=== PATIENT | female | born 1965 | race Two or more races ===

== ENCOUNTER → 2024-12-06 | Outpatient (CLI) | payer MEDICAID, SELFPAY ==
[2024-12-06 09:53] LABS: Basophils # (Auto) 0.1 Thou/mm3 (0.0-0.2); Basophils % (Auto) 1 % (0-2.5); Eosinophils # (Auto) 0.5 Thou/mm3 (0.0-0.5); Eosinophils % (Auto) 5 % (0-10); Hematocrit 41.9 % (36.0-46.0); Hemoglobin 13.6 g/dL (12.0-16.0); Immature Granulocytes % (Auto) 1 % (0-0); Immature Granulocytes Auto 0.08 Thou/mm3 (0.00-0.00); Lymphocytes # (Auto) 2.6 Thou/mm3 (1.0-4.8); Lymphocytes % (Auto) 24 % (10-50); Mean Corpuscular HGB Conc 32.5 g/dl (31.0-37.0); Mean Corpuscular Hemoglobin 27.4 pg (25.0-35.0); Mean Corpuscular Volume 84 fL (80-100); Monocytes # (Auto) 0.7 Thou/mm3 (0.0-0.8); Monocytes % (Auto) 6 % (0-12); Neutrophils # (Auto) 6.8 Thou/mm3 (1.8-7.7); Neutrophils % (Auto) 63 % (37-80); Nucleated Red Blood Cell % 0 /100 WBC (0); Platelet Count 236 Thou/mm3 (140-440); Red Blood Count 4.97 Miln/mm3 (4.00-5.20); White Blood Count 10.7 Thou/mm3 (3.6-11.0)
[2024-12-06 09:55] LABS: Partial Thromboplastin Time 27.6 Seconds (22.0-36.0); Prothrombin Time 11.2 Seconds (9.0-12.2)
[2024-12-06 10:10] LABS: Alanine Aminotransferase 49 U/L (10-49); Albumin, Serum 4.8 gm/dL (3.5-5.0); Albumin/Globulin Ratio 1.4 (1.2-2.2); Alkaline Phosphatase 215 U/L (46-116); Anion Gap 11 (7-16); Aspartate Amino Transferase 36 U/L (0-34); BUN/Creatinine Ratio 18 Ratio (12-20); Bilirubin,Total 0.3 mg/dL (0.3-1.2); Blood Urea Nitrogen 16 mg/dL (9-23); Calcium 9.8 mg/dL (8.3-10.6); Calcium (Corrected) 9.8 mg/dL (8.5-10.1); Carbon Dioxide 28.3 mMol/L (20.0-31.0); Chloride 100 mMol/L (98-107); Creatinine (Component) 0.9 mg/dL (0.6-1.3); Globulin 3.5 gm/dL (2.3-3.5); Glucose 295 mg/dL (74-106); Osmolality,Calculated 289 (275-295); Potassium 4.3 mMol/L (3.4-5.1); Sodium 139 mMol/L (136-145); Total Protein 8.3 gm/dL (5.7-8.2); eGFR > 60 See Note
[2024-12-06 10:20] LABS: Ammonia < 10 uMol/L (11-32)
--- NOTE | 2024-12-06 11:00 | XR_ITS ---
Examination: CT abdomen, without intravenous contrast. CT abdomen, with intravenous contrast. Sagittal and coronal 2-D reconstructions. Time of exam:May 08, 2025 1037 hours Comparison February 06, 2021 INDICATIONS: Diagnosis cirrhosis years ago, chronic abdominal pain CTDI: vol (mGy) 20.9 DLP: (mGycm) 688 Technique: Multiple 3.0 mm axial noncontrast images of the abdomen have been obtained. Multiple 3.0 mm axial images post administration 60 cc Isovue-370 intravenous contrast have been obtained. Sagittal and coronal 3-D reconstructions have been obtained. Low dose protocols were performed. One or more of the following dose reduction techniques were used; automated exposure control, adjustment of the mA and/or KV according to patient size, use of iterative reconstruction technique. Findings: Liver irregular in contour with diffuse fatty infiltration Absent gallbladder Spleen not enlarged No pancreatic or adrenal mass No renal or ureteral calculi, no hydronephrosis Aorta normal size No bowel obstruction Severe chronic compression fracture T12 with retropulsion of the posterior superior margin of this vertebral body 5 mm IMPRESSION: Cirrhosis, no focal liver lesions
== END | disposition home or self-care (01) ==
LOC: CCTX 08:59 → COPL 09:00
PROVIDERS: PCP Nurse Practitioner Family
DX: R16.0 Hepatomegaly, not elsewhere classified (principal)
CPT/HCPCS: 36415; 74170; 80053; 82105; 82140; 85025; 85610; 85730; A4649; Q9967

== ENCOUNTER 2025-05-28 19:59 | Emergency (ER) | payer MEDICAID, SELFPAY ==
[2025-05-28 20:00] VITALS: BMI 25.4
[2025-05-28 20:09] VITALS: BP 153/75; PULSE 111; RESP 20; TEMP 37.4; O2SAT 97
--- NOTE | 2025-05-28 20:29 | EDNOTE_ITS ---
ED Back Injury Pain RME/HPI General Chief Complaint: General Adult/Misc Complain Stated Complaint: GENERALIZED BODY PAIN Time Seen by Provider: 05/28/25 20:17 Arrival date/time: 05/28/25 19:59 This is a case of 60-year-old female with history of diabetes and generalized body pain came in in the emergency room due to low back pain and sciatica pain patient denies any other pain denies any headache chest pain neck pain or abdominal pain patient came here due to pain on the back denies any injury or trauma patient states that she has already appointment to see a pain management doctor denies any numbness weakness tingling sensation or incontinence to urine or stool Limitations: no limitations Related Data Previous Rx's ?Medication ?Instructions ?Recorded ibuprofen 800 mg tablet 800 mg PO TID PRN pain #30 t abs 02/06/21 hydrocodone 5 mg-acetaminophen 325 1 tab PO BID PRN pa in #10 tabs 04/16/21 mg tablet ibuprofen 800 mg tablet 800 mg PO TID PRN pain #30 t abs 04/16/21 cyclobenzaprine 5 mg tablet 5 mg PO BID PRN muscle spa sm #14 08/30/21 tabs ibuprofen 600 mg tablet 600 mg PO Q8H PRN fever or p ain 08/30/21 #30 tabs dextromethorphan-guaifenesin 10 10 ml PO Q8H PRN cough #500 mL 10/29/23 mg-100 mg/5 mL oral liquid ibuprofen 600 mg tablet 600 mg PO TID PRN pain #30 t abs 10/29/23 benzonatate 200 mg capsule 200 mg PO TID PRN cough #20 caps 03/28/24 ibuprofen 600 mg tablet 600 mg PO TID PRN pain #30 t abs 03/28/24 hydrocodone 5 mg-acetaminophen 325 1 tab PO Q6H PRN pa in #8 tabs 05/28/25 mg tablet Allergies Allergy/AdvReac Type Severity Reaction Status Date / Time No Known Allergies Allergy Verified 05/28/25 20:04 Review of Systems Review of Systems Systems Reviewed: All systems reviewed, normal except as documented Constitutional Constitutional: Reports system reviewed and no additional complaints, except as documented and Reports as per HPI Cardiovascular Cardiovascular: Reports system reviewed and no additional complaints, except as documented and Reports as per HPI Respiratory Respiratory: Reports system reviewed and no additional complaints, except as documented and Reports as per HPI Gastrointestinal Gastrointestinal: Reports system reviewed and no additional complaints, except as documented and Reports as per HPI Genitourinary Genitourinary: Reports system reviewed and no additional complaints, except as documented and Reports as per HPI Neurologic Neurologic: Reports system reviewed and no additional complaints, except as documented and Reports as per HPI Past Medical History Past Medical History CARDIAC: Negative Congestive Heart Failure RESPIRATORY: Negative Chronic Obstructive Pulmonary Disease (COPD) GENITOURINARY: Negative Renal Disease ENDOCRINE: Negative Diabetes Mellitus Type 1 or Diabetes Mellitus Type 2 Social History SMOKING STATUS: Never smoker ED Exam General Limitations: Present no limitations General appearance: Present alert, in no apparent distress and other (Patient is awake alert oriented not in distress nontoxic looking well-hydrated well- nourished) Head Head exam: Present atraumatic, normocephalic and normal inspection Eye Eye exam: Present normal appearance, PERRL and EOMI ENT ENT exam: Present normal exam, normal oropharynx, mucous membranes moist and other (HEENT exam is normal and unremarkable) Neck Neck exam: Present normal inspection, full ROM, trachea midline and other (ROM intact neurovascular intact); Absent tenderness, meningismus, lymphadenopathy or thyromegaly Chest Chest inspection: Present normal inspection and symmetric chest wall rise; Absen t tenderness Respiratory Respiratory exam: Present normal lung sounds bilaterally; Absent respiratory distress, wheezes, stridor, accessory muscle use or prolonged expiratory phase Cardiovascular Cardiovascular exam: Present regular rate, normal rhythm and normal heart sounds; Absent bradycardia, tachycardia, irregular rhythm, systolic murmur or diastolic murmur Abdominal Exam Abdominal exam: Present soft and normal bowel sounds; Absent distention, tenderness, guarding, rebound, rigidity, hyperactive bowel sounds, hypoactive bowel sounds or organomegaly Extremities Exam Extremities exam: Present normal inspection and full ROM Expanded Lower Extremity Exam Hip/Pelvis exam: Present normal inspection and full ROM; Absent tenderness or swelling Upper leg exam: Present normal inspection and full ROM; Absent tenderness or swelling Knee exam: Present normal inspection and full ROM; Absent tenderness or swelling Lower leg exam: Present normal inspection, full ROM and Achilles tendon intact; Absent tenderness, swelling or Homans' sign Ankle exam: Present normal inspection and full ROM; Absent tenderness or swelling Foot/toe exam: Present normal inspection and full ROM; Absent tenderness or swelling Back Exam Back exam: Present normal inspection, full ROM and tenderness (Lumbar L1 L5 ROM intact neurovascular); Absent CVA tenderness (R), CVA tenderness (L), muscle spasm, paraspinal tenderness, vertebral tenderness, rashes or sciatic notch tenderness (R) Neurological Exam Neurological exam: Present alert, oriented X3, CN II-XII intact, normal gait and reflexes normal; Absent motor sensory deficit Psychiatric Psychiatric exam: Present normal affect and normal mood Skin Skin exam: Present warm, dry, intact and normal color Course Quality Measures none Orders Category Date Time Status HYDROcodone*/APAP 5/325 [Energy 5/325] Med 05/28/25 20:25 Discontinued 1 tab PO X1 ONE Ketorolac Inj [Toradol Inj] Med 05/28/25 20:25 Discontinued 30 mg IM X1 ONE Ondansetron Odt [Zofran Odt] Med 05/28/25 20:25 Discontinued 4 mg PO X1 ONE Vital Signs Vital signs: Vital Signs Temperature 99.3 F 05/28/25 20:09 Pulse Rate 111 H 05/28/25 20:09 Respiratory Rate 20 05/28/25 20:09 Blood Pressure 153/75 H 05/28/25 20:09 Pulse Oximetry (%) 97 05/28/25 20:09 Oxygen Delivery Method Room Air 05/28/25 20:09 Oxygen saturation is 97% in room air Back Pain / Injury MDM Narrative MDM Narrative:: This is a case of 60-year-old female with history of diabetes and generalized body pain came in in the emergency room due to low back pain and sciatica pain patient denies any other pain denies any headache chest pain neck pain or abdominal pain patient came here due to pain on the back denies any injury or trauma patient states that she has already appointment to see a pain management doctor denies any numbness weakness tingling sensation or incontinence to urine or stool physical examination patient is awake alert oriented not in distress nontoxic looking vital signs stable BP stable not tachycardic not tachypneic not hypoxic and afebrile neck exam is normal no tenderness ROM intact neurovascular intact lungs sound is clear no crackles no rales no retraction no stridor heart normal rate regular rhythm no murmur abdominal exam is benign nonsurgical no guarding no rebound no rigidity noted a mild to moderate tenderness on the L1-L5 but no paraspinal no paravertebral tenderness steady gait no CVA tenderness leg raise exam is normal based on my physical examination and history patient symptoms suggestive of chronic low back pain and sciatica at the time of exam there is no indication to perform any blood test or any imaging patient only wants a pain medication until she will see his pain management doctor for any worsening symptoms or any emergent concerns she will return in the emergency room immediately or call 911 she will follow-up with PCP in 2 days for r eevaluation at the time of exam no signs and symptoms of cauda equina Patient was discharged with comfortable condition walking with stable gait. Patient verbalized no further complains explained diagnosis and answered patient question. Patient is comfortable with the proposed management plan including the need to follow up with his/her primary care physician and any specialist if applicable Discussed patient for any urgent condition or worsening sx, He/She needed to go to emergency room immediately or call 911. Patient acknowledge the responsibility to follow up as instructed and to monitor her/his symptoms. For any persistence of the symptoms for more than 3-5 days return precaution advised. Discussed the result of the test and was given printed discharge instruction Patient data External records reviewed:: [facility] previous records Clinical information provided by:: patient Social determinants that could affect healthcare access:: none Patient has the following chronic illnesses:: None How is presenting disease/condition affected by chronic disease/condition?: no chronic disease Evaluation data The following diagnostics were reviewed and interpreted by me:: other (specify) (None) Lab and/or radiology exams considered but not ordered:: None Interpretation Summary: None Medications / Prescriptions Medications or Prescriptions considered but not ordered:: Given Medication administrations:: Medication Administration History Discontinued Medications Hydrocodone Bitart/Acetaminophen (Hydrocodone/Apap 5/325 Tablet) 1 tab PO X1 ONE Stop: 05/28/25 20:26 Ketorolac Tromethamine (Ketorolac Inj 60 Mg/2 Ml Vial) 30 mg IM X1 ONE Stop: 05/28/25 20:26 Ondansetron HCl (Ondansetron Odt 4 Mg Tabrap) 4 mg PO X1 ONE; Protocol Stop: 05/28/25 20:26 Given Consultations Consultation(s) initiated? (list below): No Diagnosis Differential diagnosis back pain/injury: lumbar radiculopathy, sciatica, strain of lumbar region and thoracic back pain Most likely diagnosis given after review of the tests above:: Chronic low back pain sciatica Admission Indicated Admission indicated?: not indicated Explain why admission is indicated or not indicated:: Not indicated Admission Request Was there a request for admission?: No Admission Attestation Admission request attestation: Not indicated Disposition Plan Disposition Plan: Discharge Discharge Attestation Discharge Attestation: The patient and all family members were given an opportunity to ask questions and understood the discharge instructions. Discharge instructions specifically effects, indications for sooner follow up or return to the emergency department, and the expected course of current diagnosis. Patient condition: Stable Discharge Plan Plan Patient Disposition: HOME (Self Care) Patient condition on transfer: Stable Prescriptions/Referrals Prescriptions/Med Rec: New hydrocodone-acetaminophen 5-325 mg tablet 1 tab PO Q6H MDD max 4 tabs per day PRN (Reason: pain) Qty: 8 0RF No Action ibuprofen 800 mg tablet 800 mg PO TID PRN (Reason: pain) Qty: 30 0RF hydrocodone-acetaminophen 5-325 mg tablet 1 tab PO BID MDD 10 PRN (Reason: pain) Qty: 10 0RF ibuprofen 800 mg tablet 800 mg PO TID PRN (Reason: pain) Qty: 30 0RF cyclobenzaprine 5 mg tablet 5 mg PO BID PRN (Reason: muscle spasm) Qty: 14 0RF ibuprofen 600 mg tablet 600 mg PO Q8H PRN (Reason: fever or pain) Qty: 30 0RF dextromethorphan-guaifenesin 10-100 mg/5 mL liquid 10 ml PO Q8H PRN (Reason: cough) Qty: 500 0RF ibuprofen 600 mg tablet 600 mg PO TID PRN (Reason: pain) Qty: 30 0RF benzonatate 200 mg capsule 200 mg PO TID PRN (Reason: cough) Qty: 20 0RF ibuprofen 600 mg tablet 600 mg PO TID PRN (Reason: pain) Qty: 30 0RF Problem List Clinical Impression: Chronic low back pain, Sciatica Patient/Caregiver Discharge Instructions Education Materials: Managing Chronic Pain, ED Back Pain (Acute or Chronic), ED Chronic Pain, ED Sciatica Additional Instructions: Follow-up with your primary care physician in 2 days for reevaluation and to be referred to neurosurgeon for further evaluation and treatment of chronic low back pain for possible MRI to ruled out herniated disc and to be referred to pain management doctor for pain control worsening symptoms or any emergent concerns such as numbness weakness tingling sensation incontinence to urine or stool call 911 or go to the nearest emergency room take your medication as dire cted ice pack and warm compress as needed for pain Print Language: Namibian Stand Alone Forms: [employer] Award Info., Patient Portal Info Letter PA/PROFESSOR OF GRAPHIC DESIGN Supervising Physician PA/PROFESSOR OF GRAPHIC DESIGN Supervising Physician: Dr. Dean
[2025-05-28] MEDS: HYDROcodone/APAP 5/325 TABLET 1 TAB PO (20:32)
[2025-05-28] MEDS: KETOROLAC INJ 60 MG/2 ML VIAL 30 MG IM (20:33)
[2025-05-28] MEDS: ONDANSETRON ODT 4 MG TABRAP PO (20:33)
== END 2025-05-28 20:41 | disposition home or self-care (01) ==
PROVIDERS: Emergency Provider Emergency Medicine
DX: M54.40 Lumbago with sciatica, unspecified side (principal); G89.29 Other chronic pain
CPT/HCPCS: 96372; 99283; J1885; Q0162; A9270

== ENCOUNTER 2025-06-06 10:39 | Emergency (ER) | payer MEDICAID, SELFPAY ==
[2025-06-06 10:43] VITALS: PULSE 84; RESP 20; O2SAT 98; BMI 25.2
[2025-06-06 10:47] VITALS: BP 138/81; PULSE 77; RESP 17; TEMP 36.9; O2SAT 100
--- NOTE | 2025-06-06 11:05 | EDNOTE_ITS ---
<Statement entered by Jessica Ayala MD - 06/25/25 06:08> As co-signing physician, I was present and available for consult prn. I concur with the plan and care as documented by the midlevel provider. ED Headache RME/HPI General Chief Complaint: Headache Stated Complaint: HEADACHE Time Seen by Provider: 06/06/25 11:01 Arrival date/time: 06/06/25 10:39 RME / HPI RME / HPI Narrative: 60-year-old female patient with significant history of hypertension diabetes mellitus, came in for evaluation regarding headache. Been having headache for the last few days, this morning patient is worried because the headache is getting worse, severity moderate associated with nausea. Patient also complaining of facial numbness both side. Denies any upper or lower extremity focal neurologic deficit. Denies any head trauma or fall denies any fever. Patient is currently seen by PCP for chronic pain and fibromyalgia. Related Data Previous Rx's ?Medication ?Instructions ?Recorded ibuprofen 800 mg tablet 800 mg PO TID PRN pain #30 t abs 02/06/21 hydrocodone 5 mg-acetaminophen 325 1 tab PO BID PRN pa in #10 tabs 04/16/21 mg tablet ibuprofen 800 mg tablet 800 mg PO TID PRN pain #30 t abs 04/16/21 cyclobenzaprine 5 mg tablet 5 mg PO BID PRN muscle spa sm #14 08/30/21 tabs ibuprofen 600 mg tablet 600 mg PO Q8H PRN fever or p ain 08/30/21 #30 tabs dextromethorphan-guaifenesin 10 10 ml PO Q8H PRN cough #500 mL 10/29/23 mg-100 mg/5 mL oral liquid ibuprofen 600 mg tablet 600 mg PO TID PRN pain #30 t abs 10/29/23 benzonatate 200 mg capsule 200 mg PO TID PRN cough #20 caps 03/28/24 ibuprofen 600 mg tablet 600 mg PO TID PRN pain #30 t abs 03/28/24 hydrocodone 5 mg-acetaminophen 325 1 tab PO Q6H PRN pa in #8 tabs 05/28/25 mg tablet rizatriptan 10 mg tablet (Maxalt) 10 mg PO Q2H PRN shon campos headache 06/06/25 #30 tabs Allergies Allergy/AdvReac Type Severity Reaction Status Date / Time No Known Allergies Allergy Verified 05/28/25 20:04 Review of Systems Review of Systems Narrative Review of Systems: Review of system reviewed and within normal limits except mentioned in HPI ED Exam Narrative Physical exam: VITAL SIGNS: Reviewed. GENERAL APPEARANCE: Alert and interactive, follows commands, no acute distress, HEAD AND FACE: Non-traumatic. ENT: PERRL, pink conjunctivitis, eyelid no trauma, Mucous membrane moist. NECK: Supple, nontender, no nuchal rigidity. CHEST: No tenderness, no crepitus, no paradoxical movement, no retractions. LUNGS: Clear, well ventilated, symmetric, no rales, no wheezing, no ronchi, no stridor, good breath sounds bilaterally. HEART: Regular rate, regular rhythm, no murmur, no gallops. ABDOMEN: Soft, positive bowel sounds, nondistended, no guarding, nontender, no rebound, no masses, RECTAL: Deferred. GENITAL: Deferred. NEUROLOGICAL: Gross motor function intact sensory function intact, Appropriate for age. MUSCULOSKELETAL: low back nontender, full range of motion. EXTREMITIES: Nontender, full range of motion. SKIN: Color pink, dry, no rash, no lacerations, no abrasions, no contusions. LYMPHATICS: Deferred. Course Quality Measures none Orders Category Date Time Status CT head/brain wo con Stat Exams 06/06/25 11:14 Completed CBC [CBC] Stat Lab 06/06/25 11:23 Completed CMP [Comprehensive Metabolic Panel] Stat Lab 06/06/25 11:23 Completed Acetaminophen Ivpb [Ofirmev Inj] Med 06/06/25 11:14 Discontinued 1,000 mg in 100 ml IV X1 DiphenhydrAMINE INJ [Benadryl Inj] Med 06/06/25 11:14 Discontinued 50 mg IVP X1 ONE Metoclopramide Inj [Reglan Inj] Med 06/06/25 11:14 Discontinued 10 mg IVP X1 ONE Vital Signs Vital signs: Vital Signs Temperature 98.4 F 06/06/25 10:47 Pulse Rate 77 06/06/25 10:47 Respiratory Rate 17 06/06/25 10:47 Blood Pressure 138/81 H 06/06/25 10:47 Pulse Oximetry (%) 100 06/06/25 10:47 Headache MDM Narrative MDM Narrative:: 60-year-old female patient with significant history of hypertension diabetes mellitus, came in for evaluation regarding headache. Been having headache for the last few days, this morning patient is worried because the headache is getting worse, severity moderate associated with nausea. Patient also complaining of facial numbness both side. Denies any upper or lower extremity focal neurologic deficit. Denies any head trauma or fall denies any fever. Patient is currently seen by PCP for chronic pain and fibromyalgia. CT scan of the head came back unremarkable. Laboratory workup also came back normal. Patient was given Tylenol, Benadryl and Reglan, and IV fluids with significant cardiac symptoms. Patient stable for discharge home Patient data External records reviewed:: None Clinical information provided by:: patient Social determinants that could affect healthcare access:: none Patient has the following chronic illnesses:: Chronic pain syndrome How is presenting disease/condition affected by chronic disease/condition?: exacerbated by Evaluation data The following diagnostics were reviewed and interpreted by me:: lab results and radiology exam(s) Lab and/or radiology exams considered but not ordered:: None Interpretation Summary: See results MDM Medications / Prescriptions Medications or Prescriptions considered but not ordered:: None Medication administrations:: Medication Administration History Discontinued Medications Diphenhydramine HCl (Diphenhydramine Inj 50 Mg/Ml Vial) 50 mg IVP X1 ONE Stop: 06/06/25 11:15 Last Admin: 06/06/25 11:31 Dose: 50 mg Documented By: BY Acetaminophen (Ofirmev Inj) 1,000 mg in 100 mls @ 250 mls/hr IV X1 ONE Stop: 06/06/25 11:37 Last Infusion: 06/06/25 13:05 Dose: Infused Documented By: Admin: 06/06/25 11:32 Dose: 250 mls/hr Documented By: BY Metoclopramide HCl (Metoclopramide Inj 5 Mg/Ml Vial 2 Ml) 10 mg IVP X1 ONE; Protocol Stop: 06/06/25 11:15 Last Admin: 06/06/25 11:32 Dose: 10 mg Documented By: BY Reglan, Tylenol and Benadryl Consultations Consultation(s) initiated? (list below): No Diagnosis Differential diagnosis headache: migraine, tension headache and headache Most likely diagnosis given after review of the tests above:: Migraine headache Admission Indicated Admission indicated?: not indicated Admission Request Was there a request for admission?: No Disposition Plan Disposition Plan: Discharge Discharge Attestation Discharge Attestation: The patient was given an opportunity to ask questions and understood the discharge instructions. Discharge instructions specifically effects, indications for sooner follow up or return to the emergency department, and the expected course of current diagnosis. Patient condition: Stable Discharge Plan Plan Patient Disposition: HOME (Self Care) Discharge Disposition comment: Stable Prescriptions/Referrals Prescriptions/Med Rec: New rizatriptan [Maxalt] 10 mg tablet 10 mg PO Q2H PRN (Reason: migraine headache) Qty: 30 0RF Rx Instructions: do not exceed 3 doses per 24 hrs No Action ibuprofen 800 mg tablet 800 mg PO TID PRN (Reason: pain) Qty: 30 0RF hydrocodone-acetaminophen 5-325 mg tablet 1 tab PO BID MDD 10 PRN (Reason: pain) Qty: 10 0RF ibuprofen 800 mg tablet 800 mg PO TID PRN (Reason: pain) Qty: 30 0RF cyclobenzaprine 5 mg tablet 5 mg PO BID PRN (Reason: muscle spasm) Qty: 14 0RF ibuprofen 600 mg tablet 600 mg PO Q8H PRN (Reason: fever or pain) Qty: 30 0RF dextromethorphan-guaifenesin 10-100 mg/5 mL liquid 10 ml PO Q8H PRN (Reason: cough) Qty: 500 0RF ibuprofen 600 mg tablet 600 mg PO TID PRN (Reason: pain) Qty: 30 0RF benzonatate 200 mg capsule 200 mg PO TID PRN (Reason: cough) Qty: 20 0RF ibuprofen 600 mg tablet 600 mg PO TID PRN (Reason: pain) Qty: 30 0RF hydrocodone-acetaminophen 5-325 mg tablet 1 tab PO Q6H MDD max 4 tabs per day PRN (Reason: pain) Qty: 8 0RF Referrals: Orlin Barrett NP [Primary Care Provider] - In 1 week Problem List Clinical Impression: Headache Patient/Caregiver Discharge Instructions Discharge Activity: activity as tolerated Education Materials: Self-Care for Headaches Additional Instructions: Thank you for the opportunity for serving you today. You are stable for discharged . You are advised to: Follow-up with your PCP in 1 to 2 days Return to ED for worsening of symptoms Increase oral fluids Take medication as prescribed Print Language: Panamanian Stand Alone Forms: [employer] Award Info., Patient Portal Info Letter PA/PERSONAL CARE AID Supervising Physician CLARITZA/PERSONAL CARE AID Supervising Physician: MD Arsalan
[2025-06-06 11:13] VITALS: BP 143/87; PULSE 74; RESP 18; TEMP 37; O2SAT 98
--- NOTE | 2025-06-06 11:14 | XR_ITS ---
Examination: CT brain head without contrast. 2-D sagittal coronal reconstructions Date and time of exam:June 06, 2000 2512 noon COMPARISON: August 29, 2021 INDICATIONS: Generalized head pain today CTDI: vol (mGy):47.3 DLP: (mGycm):890 Technique: Multiple CT axial sections of the brain have been obtained, 5 mm slice thickness. Contrast has not been administered. 2-D sagittal, coronal reconstructions have been obtained Low dose protocols were performed. One or more of the following dose reduction techniques were used; automated exposure control, adjustment of the mA and/or KV according to patient size, use of iterative reconstruction technique. Findings: No significant ventricular enlargement. Intra-axial or extra-axial hemorrhage density is not seen. No mass effect or midline shift Basal cisterns are not remarkable. Fourth ventricle is midline. Cranial vault intact. Impression: Negative for acute hemorrhage, mass effect or midline shift Advise clinical correlation follow-up accordingly
[2025-06-06] MEDS: ACETAMINOPHEN IVPB 1,000 MG/100 ML VIAL 250 MG IV (11:32)
[2025-06-06] MEDS: METOCLOPRAMIDE INJ 5 MG/ML VIAL 2 ML 10 MG IVP (11:32)
[2025-06-06 11:42] LABS: Basophils # (Auto) 0.0 Thou/mm3 (0.0-0.2); Basophils % (Auto) 1 % (0-2.5); Eosinophils # (Auto) 0.5 Thou/mm3 (0.0-0.5); Eosinophils % (Auto) 6 % (0-10); Hematocrit 39.3 % (36.0-46.0); Hemoglobin 13.0 g/dL (12.0-16.0); Immature Granulocytes Auto 0.04 Thou/mm3 (0.00-0.00); Lymphocytes # (Auto) 2.4 Thou/mm3 (1.0-4.8); Lymphocytes % (Auto) 33 % (10-50); Mean Corpuscular HGB Conc 33.1 g/dl (31.0-37.0); Mean Corpuscular Hemoglobin 26.3 pg (25.0-35.0); Mean Corpuscular Volume 79 fL (80-100); Monocytes # (Auto) 0.9 Thou/mm3 (0.0-0.8); Monocytes % (Auto) 12 % (0-12); Neutrophils # (Auto) 3.6 Thou/mm3 (1.8-7.7); Neutrophils % (Auto) 48 % (37-80); Nucleated Red Blood Cell # 0.00 Thou/mm3 (0.00-0.00); Nucleated Red Blood Cell % 0 /100 WBC (0); Platelet Count 224 Thou/mm3 (140-440); RDW Standard Deviation 42.2 fL (36.4-46.3); Red Blood Count 4.95 Miln/mm3 (4.00-5.20); White Blood Count 7.5 Thou/mm3 (3.6-11.0)
[2025-06-06 11:53] LABS: Alanine Aminotransferase 52 U/L (10-49); Albumin, Serum 4.3 gm/dL (3.5-5.0); Albumin/Globulin Ratio 1.4 (1.2-2.2); Alkaline Phosphatase 145 U/L (46-116); Anion Gap 10 (7-16); Aspartate Amino Transferase 41 U/L (0-34); BUN/Creatinine Ratio 13 Ratio (12-20); Bilirubin,Total 0.3 mg/dL (0.3-1.2); Blood Urea Nitrogen 10 mg/dL (9-23); Calcium 9.5 mg/dL (8.3-10.6); Calcium (Corrected) 9.5 mg/dL (8.5-10.1); Carbon Dioxide 26.9 mMol/L (20.0-31.0); Chloride 99 mMol/L (98-107); Creatinine (Component) 0.8 mg/dL (0.6-1.3); Estimated Creatinine Clearance 58.8 mL/min (>60); Globulin 3.0 gm/dL (2.3-3.5); Glucose 124 mg/dL (74-106); Osmolality,Calculated 271 (275-295); Potassium 4.2 mMol/L (3.4-5.1); Sodium 136 mMol/L (136-145); Total Protein 7.3 gm/dL (5.7-8.2); eGFR > 60 See Note
[2025-06-06 13:07] VITALS: BP 106/65; PULSE 70; RESP 18; O2SAT 94
--- NOTE | 2025-06-06 14:00 | PC.NURSE ---
GAVE PT A TURKEY SANDWICH, APPROVED BY PROVIDER.
--- NOTE | 2025-06-06 14:09 | PC.NURSE ---
SPOKE W/SW, TO BOOK RIDE BACK HOME. SW WILL GO SPEAK W/PT TO COME UP WITH A PLAN
--- NOTE | 2025-06-06 14:20 | PC.CC ---
Addendum entered by Anastasiia Aguirre 06/06/25 14:27: Pt advised that she will have family home to receive her and they will be able to assist her upon arrival Addendum entered by Anastasiia Aguirre 06/06/25 14:23: 1422-ER security is aware that pt will need assistance getting into the [employer] car and they are aware the pt will be transporting via [employer]. Assigned RN is aware. Original Note: 1420-ASW arranged transportation via [employer] for the pt to return home. p/u ETA 7 minutes and the [employer] driver engineer will go to the ER parking lot
== END 2025-06-06 14:30 | disposition home or self-care (01) ==
PROVIDERS: Nurse Practitioner Family; Emergency Provider Emergency Medicine; PCP Nurse Practitioner Family
DX: R51.9 Headache, unspecified (principal); E11.9 Type 2 diabetes mellitus without complications; I10 Essential (primary) hypertension; M79.7 Fibromyalgia
CPT/HCPCS: 36415; 70450; 80053; 85025; 96365; 96366; 96375; 99283; J0131; J1200; J2765

== ENCOUNTER 2025-06-09 21:32 | Emergency (ER) | payer MEDICAID, SELFPAY ==
[2025-06-09 21:50] VITALS: BP 100/59; PULSE 77; RESP 18; TEMP 37; O2SAT 100
[2025-06-09 22:00] VITALS: PULSE 78; RESP 18; O2SAT 98
--- NOTE | 2025-06-09 22:06 | EKG_ITS ---
[facility] Test Date: 2025-06-09 Pat Name: SHEA FERMIN Department: Room: - Gender: Female [employer]: : [id number] Requested By: Jo Ann Cardoso Order Number: [id number] Reading MD: Jo Ann Cardoso Measurements Intervals Shields Rate: 76 P: 36 SD: 167 QRS: -17 QRSD: 84 T: 55 QT: 405 QTc: 456 Interpretive Statements SINUS RHYTHM LOW QRS VOLTAGE IN PRECORDIAL LEADS [QRS DEFLECTION < 1.0 mV IN CHEST LEADS] POSSIBLE ANTERIOR MYOCARDIAL INFARCTION , PROBABLY OLD [30 ms Q WAVE IN V3/V4, OR R < 0.2 mV IN V4] No previous ECG available for comparison /[id number]
[2025-06-09 22:09] VITALS: BMI 25.2
--- NOTE | 2025-06-09 22:11 | EDNOTE_ITS ---
ED General RME/HPI General Chief complaint: General Adult/Misc Complain Stated complaint: POLYPHARMA Time Seen by Provider: 06/09/25 21:53 Arrival date/time: 06/09/25 21:32 RME / HPI RME / HPI narrative: Ms. Jeffrey is a 60-year-old female with past medical history of hypertension, fibromyalgia, type 2 diabetes mellitus, chronic pain, migraine, fatty liver disease and hyperlipidemia who presented to [facility] emergency department on 06/09/2025 with a chief complaint of dizziness and weakness. Patient reported that she took multiple pills today for her fibromyalgia reports taking acetaminophen, tizanidine, ibuprofen, lidocaine patch for body aches. Complains of a warm facial sensation bilateral lower extremity weakness and some left upper extremity numbness. Patient is alert and oriented x 4, denies any shortness of breath chest pain headache diarrhea vomiting nausea and palpitations Related Data Previous Rx's ?Medication ?Instructions ?Recorded ibuprofen 800 mg tablet 800 mg PO TID PRN pain #30 t abs 02/06/21 hydrocodone 5 mg-acetaminophen 325 1 tab PO BID PRN pa in #10 tabs 04/16/21 mg tablet ibuprofen 800 mg tablet 800 mg PO TID PRN pain #30 t abs 04/16/21 cyclobenzaprine 5 mg tablet 5 mg PO BID PRN muscle spa sm #14 08/30/21 tabs ibuprofen 600 mg tablet 600 mg PO Q8H PRN fever or p ain 08/30/21 #30 tabs dextromethorphan-guaifenesin 10 10 ml PO Q8H PRN cough #500 mL 10/29/23 mg-100 mg/5 mL oral liquid ibuprofen 600 mg tablet 600 mg PO TID PRN pain #30 t abs 10/29/23 benzonatate 200 mg capsule 200 mg PO TID PRN cough #20 caps 03/28/24 ibuprofen 600 mg tablet 600 mg PO TID PRN pain #30 t abs 03/28/24 hydrocodone 5 mg-acetaminophen 325 1 tab PO Q6H PRN pa in #8 tabs 05/28/25 mg tablet rizatriptan 10 mg tablet (Maxalt) 10 mg PO Q2H PRN shon campos headache 06/06/25 #30 tabs Allergies Allergy/AdvReac Type Severity Reaction Status Date / Time No Known Allergies Allergy Verified 05/28/25 20:04 Review of Systems Review of Systems Systems Reviewed: All systems reviewed, normal except as documented Past Medical History Past Medical History CARDIAC: Negative Congestive Heart Failure RESPIRATORY: Negative Chronic Obstructive Pulmonary Disease (COPD) GENITOURINARY: Negative Renal Disease ENDOCRINE: Negative Diabetes Mellitus Type 1 or Diabetes Mellitus Type 2 Social History SMOKING STATUS: Never smoker ALCOHOL: Former ED Exam Narrative Physical exam: Physical Exam General: Awake and in no acute distress. Conversational and non-toxic appearing. HEENT: Normocephalic, atraumatic, mucous membranes moist. Heart: Regular rate and rhythm, no murmurs. Lungs: Clear to auscultation with no wheezing or crackles. Abdomen: Soft, nondistended, nontender, positive bowel sounds. ?No guarding or rebound tenderness. Neurologic: Alert and oriented x3, no gross neurological deficit, and patient able to move all 4 extremities. Extremities: No edema. Skin: No rash or ecchymoses. Course Quality Measures none Orders Category Date Time Status Bedside COVID-19 Antigen Test NOW Care 06/09/25 22:07 Completed Bedside Influenza A&B Antigen Test NOW Care 06/09/25 22:07 Completed Eviscerator Q4H START 00 Care 06/09/25 22:09 Completed Continuous Pulse Oximetry NOW Care 06/09/25 22:09 Completed EKG (ED ONLY) *Do not use* NOW Care 06/09/25 22:06 Completed Fingerstick [Bedside Blood Glucose] NOW Care 06/09/25 22:09 Completed Orthostatic Vitals NOW Care 06/09/25 22:08 Completed EKG (ED Only) Stat Exams 06/09/25 22:06 Draft Acetaminophen Stat Lab 06/09/25 22:29 Completed Ammonia Stat Lab 06/09/25 22:29 Completed Bilirubin,Direct Stat Lab 06/09/25 22:29 Completed CBC Stat Lab 06/09/25 22:29 Completed Comprehensive Metabolic Panel Stat Lab 06/09/25 22:29 Completed INR [Prothrombin Time with INR] Stat Lab 06/09/25 22:29 Completed Lactate (Lactic Acid) Stat Lab 06/09/25 22:29 Completed Magnesium Stat Lab 06/09/25 22:29 Completed PTT [Partial Thromboplastin Time] Stat Lab 06/09/25 22:29 Completed Phosphorous Stat Lab 06/09/25 22:29 Completed Procalcitonin Stat Lab 06/09/25 22:29 Completed Troponin I Stat Lab 06/09/25 22:29 Completed Urinalysis, C/S if Indicated Stat Lab 06/09/25 23:00 Completed Ondansetron Inj [Zofran Inj] Med 06/09/25 22:50 Discontinued 4 mg IVP X1 ONE Sodium Chloride 0.9% 1000 ml [Ns] 1,000 ml Med 06/09/25 22:50 Discontinued IV 999 mls/hr hydrOXYzine HCL [Atarax] Med 06/10/25 00:11 Discontinued 25 mg PO X1 ONE Vital Signs Vital signs: Vital Signs Temperature 98.6 F 06/09/25 21:50 Pulse Rate 77 06/09/25 21:50 Respiratory Rate 18 06/09/25 21:50 Blood Pressure 100/59 L 06/09/25 21:50 Pulse Oximetry (%) 100 06/09/25 21:50 Oxygen Delivery Method Room Air 06/09/25 21:50 Discharge Plan Plan Patient Disposition: HOME (Self Care) Patient condition on transfer: Stable Prescriptions/Referrals Prescriptions/Med Rec: No Action ibuprofen 800 mg tablet 800 mg PO TID PRN (Reason: pain) Qty: 30 0RF hydrocodone-acetaminophen 5-325 mg tablet 1 tab PO BID MDD 10 PRN (Reason: pain) Qty: 10 0RF ibuprofen 800 mg tablet 800 mg PO TID PRN (Reason: pain) Qty: 30 0RF cyclobenzaprine 5 mg tablet 5 mg PO BID PRN (Reason: muscle spasm) Qty: 14 0RF ibuprofen 600 mg tablet 600 mg PO Q8H PRN (Reason: fever or pain) Qty: 30 0RF dextromethorphan-guaifenesin 10-100 mg/5 mL liquid 10 ml PO Q8H PRN (Reason: cough) Qty: 500 0RF ibuprofen 600 mg tablet 600 mg PO TID PRN (Reason: pain) Qty: 30 0RF rizatriptan [Maxalt] 10 mg tablet 10 mg PO Q2H PRN (Reason: migraine headache) Qty: 30 0RF Rx Instructions: do not exceed 3 doses per 24 hrs benzonatate 200 mg capsule 200 mg PO TID PRN (Reason: cough) Qty: 20 0RF ibuprofen 600 mg tablet 600 mg PO TID PRN (Reason: pain) Qty: 30 0RF hydrocodone-acetaminophen 5-325 mg tablet 1 tab PO Q6H MDD max 4 tabs per day PRN (Reason: pain) Qty: 8 0RF Referrals: No Primary/Family,Physician [Primary Care Provider] - In 1 week Problem List Clinical Impression: Orthostatic hypotension, Orthostatic dizziness Patient/Caregiver Discharge Instructions Discharge Activity: activity as tolerated Education Materials: Orthostatic Hypotension Additional Instructions: - You were seen in the emergency department today for dizziness, you were found to be orthostatic positive, that can happen when you are dehydrated as you are also on Mounjaro for diabetes that can decrease your thirst as well, we gave you IV fluids, recommend drinking 2 to 3 L of water daily. We tested you for urinary tract infection, COVID and flu, they were negative. - Your labs otherwise are normal, we did a EKG which showed no signs of any heart attack. - Recommend following up with your primary care physician to adjust your fibromyalgia medication - Return to emergency department if your symptoms worsen - Follow-up with your primary care physician in 1 week, reviewed your labs and results with your primary care. Print Language: Estonian Stand Alone Forms: [employer] Info., Patient Portal Info Letter MDM Narrative MDM hospital course (for use when minimal MDM required): #Orthostatic hypotension #Dehydration #Generalized weakness 60-year-old female with past medical history as above presented with dizziness and generalized weakness Workup: Orthostatic vitals: Orthostatic lying 98/64, sitting 83/63, standing 73/55, systolic difference greater than 20, patient orthostatic positive Fingerstick blood glucose 129 CBC: WBC 12.6 hemoglobin 13.0, platelet 239 Coags INR 1.1 PTT APTT normal CMP remarkable for sodium 132 chloride 97, glucose 155, osmolality 269, AST 50, ALT 57, alk phos 132, ammonia less than 10, lactate and Pro-Alfonso within normal limits other electrolytes within normal limits. Urinalysis: Clear urine, 4+ glucose negative blood ketones nitrite bilirubin urobilinogen and leukocyte esterase. Acetaminophen levels less than 2 EKG: Sinus rhythm, heart rate [address] head done 06/06 which was negative for any acute hemorrhage Patient was given Zofran 4 mg IV push x 1 and sodium 1 L bolus Patient complains of anxiety, was given Atarax 25 x 1 Patient condition improved, stable for discharge Case discussed with Attending Physician Dr. Jaclyn Cardoso MD Internal Medicine PGY-2 Disclaimer: This note was dictated by speech recognition. Minor errors in b2b sales representative may be present due to voice recognition software. Clinical Information Provided by: patient and EMS [facility] and [facility] Meds/Rx considered, not ordered None Labs/Rad/Tests considered, not ordered None EKG Interpretation EKG #1: EKG Interpretation: EKG: Sinus rhythm, heart rate 76 Labs Lab(s) Interpretation(s): Fingerstick blood glucose 129 CBC: WBC 12.6 hemoglobin 13.0, platelet 239 Coags INR 1.1 PTT APTT normal CMP remarkable for sodium 132 chloride 97, glucose 155, osmolality 269, AST 50, ALT 57, alk phos 132, ammonia less than 10, lactate and Pro-Alfonso within normal limits other electrolytes within normal limits. Urinalysis: Clear urine, 4+ glucose negative blood ketones nitrite bilirubin urobilinogen and leukocyte esterase. Acetaminophen levels less than 2 Medication Administration(s) Medication Administration History Discontinued Medications Hydroxyzine HCl (Hydroxyzine Hcl 25 Mg Tablet) 25 mg PO X1 ONE Stop: 06/10/25 00:12 Last Admin: 06/10/25 00:29 Dose: 25 mg Documented By: CCT Sodium Chloride (Ns) 1,000 mls @ 999 mls/hr IV .Q1H1M ONE Stop: 06/09/25 23:50 Last Infusion: 06/10/25 00:11 Dose: Infused Documented By: Admin: 06/09/25 23:23 Dose: 999 mls/hr Documented By: CCT Ondansetron HCl (Ondansetron Inj 2 Mg/Ml Inj 2 Ml) 4 mg IVP X1 ONE; Protocol Stop: 06/09/25 22:51 Last Admin: 06/09/25 23:22 Dose: 4 mg Documented By: CCT
[2025-06-09 22:36] LABS: Lactate (Lactic Acid) 1.0 mMol/L (0.4-2.0)
[2025-06-09 22:40] LABS: Basophils # (Auto) 0.1 Thou/mm3 (0.0-0.2); Basophils % (Auto) 1 % (0-2.5); Eosinophils # (Auto) 0.8 Thou/mm3 (0.0-0.5); Eosinophils % (Auto) 6 % (0-10); Hematocrit 38.9 % (36.0-46.0); Hemoglobin 13.0 g/dL (12.0-16.0); Immature Granulocytes Auto 0.06 Thou/mm3 (0.00-0.00); Lymphocytes # (Auto) 3.6 Thou/mm3 (1.0-4.8); Lymphocytes % (Auto) 29 % (10-50); Mean Corpuscular HGB Conc 33.4 g/dl (31.0-37.0); Mean Corpuscular Hemoglobin 26.9 pg (25.0-35.0); Mean Corpuscular Volume 81 fL (80-100); Monocytes # (Auto) 0.9 Thou/mm3 (0.0-0.8); Monocytes % (Auto) 7 % (0-12); Neutrophils # (Auto) 7.2 Thou/mm3 (1.8-7.7); Neutrophils % (Auto) 57 % (37-80); Nucleated Red Blood Cell # 0.00 Thou/mm3 (0.00-0.00); Nucleated Red Blood Cell % 0 /100 WBC (0); Platelet Count 239 Thou/mm3 (140-440); RDW Standard Deviation 42.3 fL (36.4-46.3); Red Blood Count 4.83 Miln/mm3 (4.00-5.20); White Blood Count 12.6 Thou/mm3 (3.6-11.0)
[2025-06-09 22:50] VITALS: BP 73/55; BP 83/63; BP 98/64; PULSE 76; PULSE 81; PULSE 87
[2025-06-09 22:51] VITALS: BP 114/67; PULSE 75; RESP 17; TEMP 37; O2SAT 100
[2025-06-09 22:58] LABS: INR 1.1 (0.9-1.3); Partial Thromboplastin Time 31.9 Seconds (22.0-36.0); Prothrombin Time 11.4 Seconds (9.0-12.2)
[2025-06-09 23:15] LABS: Acetaminophen < 2.0 mcg/mL (10.0-20.0); Alanine Aminotransferase 57 U/L (10-49); Albumin, Serum 4.6 gm/dL (3.5-5.0); Albumin/Globulin Ratio 1.4 (1.2-2.2); Alkaline Phosphatase 132 U/L (46-116); Ammonia < 10 uMol/L (11-32); Anion Gap 10 (7-16); Aspartate Amino Transferase 50 U/L (0-34); BUN/Creatinine Ratio 17 Ratio (12-20); Bilirubin,Direct < 0.1 mg/dL (0.0-0.3); Bilirubin,Total 0.3 mg/dL (0.3-1.2); Blood Urea Nitrogen 17 mg/dL (9-23); Calcium 10.0 mg/dL (8.3-10.6); Calcium (Corrected) 10.0 mg/dL (8.5-10.1); Carbon Dioxide 24.6 mMol/L (20.0-31.0); Chloride 97 mMol/L (98-107); Creatinine (Component) 1.0 mg/dL (0.6-1.3); Estimated Creatinine Clearance 47.0 mL/min (>60); Globulin 3.2 gm/dL (2.3-3.5); Glucose 155 mg/dL (74-106); Magnesium 1.9 mg/dL (1.6-2.6); Osmolality,Calculated 269 (275-295); Phosphorous 4.8 mg/dL (2.4-5.1); Potassium 4.4 mMol/L (3.4-5.1); Procalcitonin 0.16 ng/ml (0.0-0.49); Sodium 132 mMol/L (136-145); Total Protein 7.8 gm/dL (5.7-8.2); Troponin I < 0.002 ng/mL (0.0-0.045); eGFR > 60 See Note
[2025-06-09 23:15] LABS: Collection Type, Urine Clean Catch
[2025-06-09] MEDS: ONDANSETRON INJ 2 MG/ML INJ 2 ML 4 MG IVP (23:22)
[2025-06-09] MEDS: SODIUM CHLORIDE 0.9% 1000 ML 1,000 ML 999 ML IV (23:23)
[2025-06-09 23:32] LABS: Bilirubin,Urine Negative (Negative); Blood,Urine Negative (Negative); Clarity,Urine Clear (Clear/Hazy); Color,Urine Lt-Yellow (Lt Yel-Yel); Culture Indicated,Urine Not Indicated; Glucose, Urine 4+ (Negative); Hyaline Casts,Urine < 1 /hpf (0-1); Ketones,Urine Negative (Negative); Leukocyte Esterase,Urine Negative (Negative); Nitrite,Urine Negative (Negative); PH,Urine 6.0 (5.0-7.0); Protein,Urine Negative (Neg - Trace); RBC,Urine 1 /hpf (0-3); Specific Gravity,Urine 1.016 (1.001-1.035); Squamous Epithelial Cell,Urine 1 /hpf (0-5); Urobilinogen,Urine Negative mg/dL (0.0-1.0); WBC,Urine 1 /hpf (0-5)
[2025-06-10 01:00] VITALS: BP 136/75; PULSE 72; RESP 19; TEMP 36.5; O2SAT 100
== END 2025-06-10 01:00 | disposition home or self-care (01) ==
PROVIDERS: Emergency Provider Emergency Medicine
DX: I95.1 Orthostatic hypotension (principal); E86.0 Dehydration; F41.9 Anxiety disorder, unspecified; I10 Essential (primary) hypertension; M79.7 Fibromyalgia; E11.9 Type 2 diabetes mellitus without complications; E78.5 Hyperlipidemia, unspecified
CPT/HCPCS: 36415; 80053; 80329; 81001; 82140; 82248; 83605; 83735; 84100; 84145; 84484; 85025; 85610; 85730; 87400; 87811; 93005; 96361; 96374; 99284; J2405; J7030; A9270; G0480

== ENCOUNTER 2025-06-12 11:48 | Emergency (ER) | payer MEDICAID, SELFPAY ==
[2025-06-12] VITALS (7 sets, daily range): BP systolic 131–172; BP diastolic 53–92; PULSE 65–92; RESP 16–19; TEMP 36.6–36.9; O2SAT 96–100; BMI 24.6
--- NOTE | 2025-06-12 12:04 | EDNOTE_ITS ---
ED General RME/HPI General Chief complaint: General Adult/Misc Complain Stated complaint: HYPOGLYCEMIA Time Seen by Provider: 06/12/25 12:02 Arrival date/time: 06/12/25 11:48 CC: Hypoglycemia HPI patient was at the component assembler office, when the patient's dextrose alarm came off stating that the blood sugar was at 59. Patient called 911. Patient had alarm earlier this morning it in the mid 50s, called 911 but then called him off secondary to taking sugar and having her blood sugar come back up again. Patient admits she ate less food than she normally does yesterday, but takes multiple medications each morning including long-acting insulin. Patient is awake alert oriented EMS reports stable vital signs and route. The patient states she is feeling better , EMS reported blood sugar in the 1 teens upon assessment. Related Data Previous Rx's ?Medication ?Instructions ?Recorded ibuprofen 800 mg tablet 800 mg PO TID PRN pain #30 t abs 02/06/21 hydrocodone 5 mg-acetaminophen 325 1 tab PO BID PRN pa in #10 tabs 04/16/21 mg tablet ibuprofen 800 mg tablet 800 mg PO TID PRN pain #30 t abs 04/16/21 cyclobenzaprine 5 mg tablet 5 mg PO BID PRN muscle spa sm #14 08/30/21 tabs ibuprofen 600 mg tablet 600 mg PO Q8H PRN fever or p ain 08/30/21 #30 tabs dextromethorphan-guaifenesin 10 10 ml PO Q8H PRN cough #500 mL 10/29/23 mg-100 mg/5 mL oral liquid ibuprofen 600 mg tablet 600 mg PO TID PRN pain #30 t abs 10/29/23 benzonatate 200 mg capsule 200 mg PO TID PRN cough #20 caps 03/28/24 ibuprofen 600 mg tablet 600 mg PO TID PRN pain #30 t abs 03/28/24 hydrocodone 5 mg-acetaminophen 325 1 tab PO Q6H PRN pa in #8 tabs 05/28/25 mg tablet rizatriptan 10 mg tablet (Maxalt) 10 mg PO Q2H PRN shon campos headache 06/06/25 #30 tabs potassium chloride 10 mEq oral 10 meq PO QDAY #4 ea packet Allergies Allergy/AdvReac Type Severity Reaction Status Date / Time acetaminophen Allergy Unknown Verified 06/12/25 13:17 gabapentin AdvReac Mild Drowsy Verified 06/12/25 12:08 ibuprofen AdvReac Mild Abdominal Verified 06/12/25 12:08 Pain semaglutide (From Ozempic) AdvReac Mild Abdominal Verified 06/12/25 12:08 Pain Review of Systems Review of Systems Narrative Review of Systems: GEN: No fever, no chills, no weight loss EYES: No discharge, no visual changes, no pain HEENT: No ear pain, no congestion, no sore throat PULM: No shortness of breath, no cough, no congestion CV: No chest pain, no dyspnea on exertion, no palpitations GI: No nausea, no vomiting, no diarrhea, no pain, no constipation : No frequency, no urgency, no dysuria MUSC/SKEL: No joint pain, no back pain SKIN: No rash PSYCH: No hallucinations, no depression HEME/LYMPH: No easy bleeding or bruising tendencies NEURO: No weakness, no headache Past Medical History Past Medical History NEUROLOGIC: Negative Neurological Disorders CARDIAC: Positive Hypertension; Negative Cardiac Disorders, Myocardial Infarction, Cardiac Arrhythmia, Atrial Fibrillation, Angina, Atherosclerotic Heart Disease, Peripheral Vascular Disease, Aneurysm, Congestive Heart Failure, Congenital Heart Disease, Cardiomyopathy, Pericarditis or Hypotension RESPIRATORY: Negative Chronic Obstructive Pulmonary Disease (COPD) GASTROINTESTINAL: Negative Gastrointestinal Disorders or Hepatitis GENITOURINARY: Negative Genitourinary Disorders or Renal Disease REPRODUCTIVE: Negative Pelvic Inflammatory Disease MUSCULOSKELETAL: Positive Fibromyalgia; Negative Musculoskeletal Disorders ENDOCRINE: Negative Diabetes Mellitus Type 1 or Diabetes Mellitus Type 2 HEMATOLOGIC: Negative Blood Disorders OTHER HISTORY: Negative Autoimmune Disease, Anesthesia Reactions, Organ Transplant, MRSA, Vancomycin-Resistant Enterococci, Clostridium Difficile or Cancer Surgical History SURGICAL: Negative Cardiac Surgery, Ear Surgery, Nephrectomy, Neurologic Surgery, Lumpectomy or Organ Transplant Social History SMOKING STATUS: Never smoker ED Exam Narrative Physical exam: [General: Not in any acute distress Head normocephalic HEENT: Within acceptable limits Neck is supple nontender Chest equal chest rise nontender to palpation Respiratory: Clear to auscultation no wheezes crackles or rubs CV: Rate rhythm is regular no murmurs rubs or clicks Abdomen is soft nontender no masses positive bowel sounds all 4 quadrants Back: No CVA tenderness no spinous process tenderness from cervical spine thoracic and lumbar spine Skin: Intact no petechiae rash induration ulceration or crepitus Extremities: Moving all extremity against resistance cap refill less than 2 seconds neurosensory intact. No lower extremity edema. Neuro: Awake alert oriented x3 Glascow coma 15 no focal deficits]. Course Course Course Narrative: Over the last several hours, blood glucose levels have remained greater than 120 at this time comfortable discharging the patient home once he is received supplemental potassium. Patient has a mild headache refused Tylenol and ibuprofen secondary to her liver , patient was given sumatriptan. At this time I am comfortable discharging the patient home with normalized glucose levels. Patient is advised to increase her food intake or her just her morning medicines. At 1626, the patient was dry retching repeat blood glucose at 107 this is after half amp of D50. I consider this to continue dropping of her blood glucose levels even after high dose glucose. Will scan the head because of the persistent dry retching to make sure there is no neurologic cause for the nausea vomiting. Reason evaluation of this patient at 1819, the patient is much more awake alert oriented stating she does not want to stay has declined admission wants to go home. Patient's head CT is negative blood glucoses have stabilized at this time I am comfortable discharging this patient home. Patient states she will call her diabetes doctor tomorrow for advice on what to do with her medications and her eating patterns. Quality Measures none Orders Category Date Time Status Glucose [Bedside Blood Glucose] NOW Care 06/12/25 12:03 Completed Saline [Insert IV] NOW Care 06/12/25 12:[address] head/brain wo con Stat Exams 06/12/25 16:10 Completed ABG [Arterial Blood Gas] Stat Lab 06/12/25 15:51 Completed CBC Stat Lab 06/12/25 12:30 Completed CMP [Comprehensive Metabolic Panel] Stat Lab 06/12/25 12:30 Completed Comprehensive Metabolic Panel Stat Lab 06/12/25 15:55 Completed Drug Screen,Urine Stat Lab 06/12/25 16:02 Completed LDH (Lactate Dehydrogenase) Stat Lab 06/12/25 15:55 Completed Magnesium Stat Lab 06/12/25 15:55 Completed Partial Thromboplastin Time Stat Lab 06/12/25 15:55 Completed Prothrombin Time with INR Stat Lab 06/12/25 15:55 Completed Urinalysis, C/S if Indicated Stat Lab 06/12/25 16:02 Completed Acetaminophen Tab [Tylenol Tab] Med 06/12/25 13:01 Discontinued 650 mg PO X1 ONE Dextrose 50% Syr [D50w Syringe Abboject] Med 06/12/25 14:02 Discontinued 25 ml IVP X1 ONE Ketorolac Inj [Toradol Inj] Med 06/12/25 15:36 Discontinued 15 mg IVP X1 ONE Ondansetron Inj [Zofran Inj] Med 06/12/25 14:30 Discontinued 4 mg IVP X1 ONE Ondansetron Inj [Zofran Inj] Med 06/12/25 15:36 Discontinued 4 mg IVP X1 ONE POTASSIUM CHL 10 mEq IVPB [Kcl Ivpb] Med 06/12/25 15:37 Discontinued 10 meq in 100 ml IV Q1H POTASSIUM CHL 10% Liq 15 ML Med 06/12/25 13:48 Discontinued 40 meq GT X1 ONE Prochlorperazine Inj [Compazine Inj] Med 06/12/25 16:07 Discontinued 10 mg IV X1 ONE Rizatriptan Med 06/12/25 13:22 Discontinued 10 mg PO X1 ONE SUMAtriptan [Imitrex] Med 06/12/25 13:46 Discontinued 25 mg PO X1 ONE Sodium Chloride 0.9% 1000 ml [Ns] 1,000 ml Med 06/12/25 15:35 Discontinued IV 999 mls/hr Vital Signs Vital signs: Vital Signs Temperature 98.2 F 06/12/25 12:03 Pulse Rate 69 06/12/25 12:03 Respiratory Rate 17 06/12/25 12:03 Blood Pressure 172/85 H 06/12/25 12:03 Pulse Oximetry (%) 100 06/12/25 12:03 Oxygen Delivery Method Room Air 06/12/25 12:03 Discharge Plan Plan Patient Disposition: HOME (Self Care) Patient condition on transfer: Stable Prescriptions/Referrals Prescriptions/Med Rec: New potassium chloride 10 mEq packet 10 meq PO QDAY Qty: 4 0RF No Action ibuprofen 800 mg tablet 800 mg PO TID PRN (Reason: pain) Qty: 30 0RF hydrocodone-acetaminophen 5-325 mg tablet 1 tab PO BID MDD 10 PRN (Reason: pain) Qty: 10 0RF ibuprofen 800 mg tablet 800 mg PO TID PRN (Reason: pain) Qty: 30 0RF cyclobenzaprine 5 mg tablet 5 mg PO BID PRN (Reason: muscle spasm) Qty: 14 0RF ibuprofen 600 mg tablet 600 mg PO Q8H PRN (Reason: fever or pain) Qty: 30 0RF dextromethorphan-guaifenesin 10-100 mg/5 mL liquid 10 ml PO Q8H PRN (Reason: cough) Qty: 500 0RF ibuprofen 600 mg tablet 600 mg PO TID PRN (Reason: pain) Qty: 30 0RF rizatriptan [Maxalt] 10 mg tablet 10 mg PO Q2H PRN (Reason: migraine headache) Qty: 30 0RF Rx Instructions: do not exceed 3 doses per 24 hrs benzonatate 200 mg capsule 200 mg PO TID PRN (Reason: cough) Qty: 20 0RF ibuprofen 600 mg tablet 600 mg PO TID PRN (Reason: pain) Qty: 30 0RF hydrocodone-acetaminophen 5-325 mg tablet 1 tab PO Q6H MDD max 4 tabs per day PRN (Reason: pain) Qty: 8 0RF Outpatient Orders: Potassium (Routine) Location: None Selected Ordered By: Deshawn Pal Problem List Clinical Impression: Hypoglycemia, Hypokalemia, Nausea & vomiting Patient/Caregiver Discharge Instructions Education Materials: Hypoglycemia (Low Blood Sugar), ED Hypokalemia Additional Instructions: Please contact your diabetic doctor for further evaluation on how much medication to give yourself your diabetes as it seems your eating patterns have changed resulting in low blood sugars today. If there are any worsening symptoms or further complications return to the emergency room for reevaluation. Print Language: German Stand Alone Forms: [employer] Info., Work/School Release PA/SALES REPRESENTATIVE WIRE ROPE Supervising Physician PA/SALES REPRESENTATIVE WIRE ROPE Supervising Physician: Deshawn Pal [facility] Clinical Information Provided by: patient and EMS Medical Records reviewed [facility] and EMS Meds/Rx considered, not ordered None Labs/Rad/Tests considered, not ordered None Chronic Illness/Social Conditions Explain: Diabetes EKG EKG not done Labs Lab(s) Interpretation(s): CBC shows no acute leukocytosis anemia thrombocytopenia CMP shows a sodium 127 potassium 3.0 chloride 92 no gap CO2 is 22.7. Blood glucose 99 however at 1350 Accu-Chek shows a blood sugar of 131. ABG shows a pH of 7.44 pCO2 of 33 pO2 of 94 bicarb of 23. Base deficit of 1. Imaging Imaging interpretation: none Medication Administration(s) Medication Administration History Discontinued Medications Acetaminophen (Acetaminophen 325 Mg Tablet) 650 mg PO X1 ONE Stop: 06/12/25 13:02 Last Admin: 06/12/25 13:54 Dose: Not Given Documented By: VL Non-Admin Reason: Discontinued Dextrose (Dextrose 50%-Water Inj 50 Ml Syringe) 25 ml IVP X1 ONE Stop: 06/12/25 14:03 Last Admin: 06/12/25 14:08 Dose: 25 ml Documented By: SOY Sodium Chloride (Ns) 1,000 mls @ 999 mls/hr IV .Q1H1M ONE Stop: 06/12/25 16:35 Last Infusion: 06/12/25 17:28 Dose: Infused Documented By: Admin: 06/12/25 15:49 Dose: 999 mls/hr Documented By: SOY Potassium Chloride (Kcl Ivpb) 10 meq in 100 mls @ 100 mls/hr IV Q1H FRANCES Stop: 06/12/25 19:36 Last Admin: 06/12/25 17:57 Dose: Not Given Documented By: VL Non-Admin Reason: Cancelled by Provider Admin: 06/12/25 17:57 Dose: Not Given Documented By: VL Non-Admin Reason: Cancelled by Provider Admin: 06/12/25 17:29 Dose: Not Given Documented By: ALHAJI Non-Admin Reason: Cancelled by Provider Comments: PER BINTA PAL, THIS MED WILL BE DC Infusion: 06/12/25 17:27 Dose: Infused Documented By: Admin: 06/12/25 15:49 Dose: 100 mls/hr Documented By: SOY Ketorolac Tromethamine (Ketorolac Inj 30 Mg/Ml Vial) 15 mg IVP X1 ONE Stop: 06/12/25 15:37 Last Admin: 06/12/25 15:48 Dose: 15 mg Documented By: SOY Non-Formulary Medication (Rizatriptan) 10 mg PO X1 ONE Stop: 06/12/25 13:23 Last Admin: 06/12/25 13:54 Dose: Not Given Documented By: VL Non-Admin Reason: Medication Not Available Ondansetron HCl (Ondansetron Inj 2 Mg/Ml Inj 2 Ml) 4 mg IVP X1 ONE; Protocol Stop: 06/12/25 14:31 Last Admin: 06/12/25 14:37 Dose: 4 mg Documented By: SOY Ondansetron HCl (Ondansetron Inj 2 Mg/Ml Inj 2 Ml) 4 mg IVP X1 ONE; Protocol Stop: 06/12/25 15:37 Last Admin: 06/12/25 15:49 Dose: 4 mg Documented By: VL Potassium Chloride (Potassium Chloride 10% 20 Meq/15 Ml Udc) 40 meq GT X1 ONE Stop: 06/12/25 13:49 Last Admin: 06/12/25 13:59 Dose: 40 meq Documented By: VL Prochlorperazine Edisylate (Prochlorperazine Inj 5 Mg/Ml Vial 2 Ml) 10 mg IV X1 ONE; Protocol Stop: 06/12/25 16:08 Last Admin: 06/12/25 16:19 Dose: 10 mg Documented By: ALHAJI Sumatriptan Succinate (Sumatriptan 25 Mg Tablet) 25 mg PO X1 ONE Stop: 06/12/25 13:47 Last Admin: 06/12/25 14:11 Dose: 25 mg Documented By: VL
[2025-06-12 13:05] LABS: Basophils # (Auto) 0.1 Thou/mm3 (0.0-0.2); Basophils % (Auto) 1 % (0-2.5); Eosinophils # (Auto) 0.4 Thou/mm3 (0.0-0.5); Eosinophils % (Auto) 4 % (0-10); Hematocrit 39.5 % (36.0-46.0); Hemoglobin 13.5 g/dL (12.0-16.0); Immature Granulocytes Auto 0.07 Thou/mm3 (0.00-0.00); Lymphocytes # (Auto) 4.1 Thou/mm3 (1.0-4.8); Lymphocytes % (Auto) 37 % (10-50); Mean Corpuscular HGB Conc 34.2 g/dl (31.0-37.0); Mean Corpuscular Hemoglobin 26.6 pg (25.0-35.0); Mean Corpuscular Volume 78 fL (80-100); Monocytes # (Auto) 0.7 Thou/mm3 (0.0-0.8); Monocytes % (Auto) 6 % (0-12); Neutrophils # (Auto) 5.6 Thou/mm3 (1.8-7.7); Neutrophils % (Auto) 51 % (37-80); Nucleated Red Blood Cell # 0.00 Thou/mm3 (0.00-0.00); Nucleated Red Blood Cell % 0 /100 WBC (0); Platelet Count 273 Thou/mm3 (140-440); RDW Standard Deviation 39.7 fL (36.4-46.3); Red Blood Count 5.07 Miln/mm3 (4.00-5.20); White Blood Count 11.0 Thou/mm3 (3.6-11.0)
[2025-06-12 13:23] LABS: Alanine Aminotransferase 44 U/L (10-49); Albumin, Serum 4.7 gm/dL (3.5-5.0); Albumin/Globulin Ratio 1.5 (1.2-2.2); Alkaline Phosphatase 130 U/L (46-116); Anion Gap 12 (7-16); Aspartate Amino Transferase 43 U/L (0-34); BUN/Creatinine Ratio 10 Ratio (12-20); Bilirubin,Total 0.6 mg/dL (0.3-1.2); Blood Urea Nitrogen 7 mg/dL (9-23); Calcium 9.7 mg/dL (8.3-10.6); Calcium (Corrected) 9.7 mg/dL (8.5-10.1); Carbon Dioxide 22.7 mMol/L (20.0-31.0); Chloride 92 mMol/L (98-107); Creatinine (Component) 0.7 mg/dL (0.6-1.3); Estimated Creatinine Clearance 66.5 mL/min (>60); Globulin 3.2 gm/dL (2.3-3.5); Glucose 99 mg/dL (74-106); Osmolality,Calculated 253 (275-295); Potassium 3.0 mMol/L (3.4-5.1); Sodium 127 mMol/L (136-145); Total Protein 7.9 gm/dL (5.7-8.2); eGFR > 60 See Note
--- NOTE | 2025-06-12 13:49 | PC.NURSE ---
PATIENT IN TO ED FOR LOW BLOOD SUGAR. PATIENT'S FREE STYLE DAJA SHOWED BLOOD SUGAR OF 57 THIS MORNING WHEN SHE WOKE UP. PATIENT'S SUGAR KEPT FLUCTUATING UP AND DOWN. PATIENT STARTED MOUNJARO INJEFCTION ABOUT 1 MONTH AND A HALF AGO. PATIENT STATES BLOOD SUGAR DOES NOT USUALLY DROP THAT LOW. PATIENT WAS SITTING IN GURNEY, VITALS STABLE STATING SHE STARTED TO HAVE A HEADACHE. PATIENT STATED SHE WAS HAVING NUMBNESS TO HER FACE AND SOME WEAKNESS. BLOOD SUGAR RECHECKED AT BEDSIDE. STEEL PICKLER AUDREY NOTIFIED. FINGER STICK BLOOD SUGAR 131. VITAL SIGNS STABLE.
[2025-06-12] MEDS: POTASSIUM CHLORIDE 10% 20 MEQ/15 ML UDC 40 MEQ GT (13:59)
--- NOTE | 2025-06-12 14:03 | PC.NURSE ---
BINTA MCNAMARA MADE AWARE PATIENT'S FREE STYLE DAJA STARTED READING 66 LOW. CHECKED PATIENT'S SUGAR AGAIN AND FINGER STICK BLOOD GLUCOSE WAS 95.PER TANKROOM TENDER VENTURA WE WILL GIVE HALF AMP OF 50 IV PUSH.
[2025-06-12] MEDS: DEXTROSE 50%-WATER INJ 50 ML SYRINGE 25 ML IVP (14:08)
[2025-06-12] MEDS: ONDANSETRON INJ 2 MG/ML INJ 2 ML 4 MG IVP ×2 (14:37→15:49)
[2025-06-12] MEDS: KETOROLAC INJ 30 MG/ML VIAL 15 MG IVP (15:48)
[2025-06-12] MEDS: SODIUM CHLORIDE 0.9% 1000 ML 1,000 ML 999 ML IV (15:49)
[2025-06-12] MEDS: POTASSIUM CHL 10 mEq IVPB 10 MEQ/100 ML BAG 100 MEQ IV (15:49)
[2025-06-12 15:58] LABS: Allen Test Performed/OK; Base Excess -1 (-3-3); HCO3 23 mEq/L (20-26); Inspired Oxygen, FIO2 21 %; O2 Saturation 97 % (91-98); PCO2 33 mmHg (32.0-48.0); PO2 94 mmHg (83-108); Puncture Site Right Radial; pH, Arterial 7.44 (7.35-7.45)
--- NOTE | 2025-06-12 16:10 | XR_ITS ---
Examination: CT brain head without contrast. 2-D sagittal coronal reconstructions Date and time of exam:May 29, 2025 1716 hrs., Comparison June 06, 2025 Indications: Headache nausea vomiting today CTDI: vol (mGy):46 DLP: (mGycm):800 Technique: Multiple CT axial sections of the brain have been obtained, 5 mm slice thickness. Contrast has not been administered. 2-D sagittal, coronal reconstructions have been obtained Low dose protocols were performed. One or more of the following dose reduction techniques were used; automated exposure control, adjustment of the mA and/or KV according to patient size, use of iterative reconstruction technique. Findings: No significant ventricular enlargement. Intra-axial or extra-axial hemorrhage density is not seen. No mass effect or midline shift Basal cisterns are not remarkable. Fourth ventricle is midline. Cranial vault intact. Impression: Negative for acute hemorrhage, mass effect or midline shift Advise clinical correlation follow-up accordingly
[2025-06-12 16:12] LABS: Collection Type, Urine Clean Catch; RBC,Urine 0 /hpf (0-3)
[2025-06-12] MEDS: PROCHLORPERAZINE INJ 5 MG/ML VIAL 2 ML 10 MG IV (16:19)
[2025-06-12 16:30] LABS: Bilirubin,Urine Negative (Negative); Blood,Urine 2+ (Negative); Clarity,Urine Clear (Clear/Hazy); Color,Urine Colorless (Lt Yel-Yel); Culture Indicated,Urine Not Indicated; Glucose, Urine 3+ (Negative); Ketones,Urine Negative (Negative); Leukocyte Esterase,Urine Negative (Negative); Nitrite,Urine Negative (Negative); PH,Urine 6.5 (5.0-7.0); Protein,Urine Negative (Neg - Trace); Specific Gravity,Urine 1.002 (1.001-1.035); Squamous Epithelial Cell,Urine < 1 /hpf (0-5); Urobilinogen,Urine Negative mg/dL (0.0-1.0); WBC,Urine < 1 /hpf (0-5)
[2025-06-12 16:37] LABS: Amphetamine/Methamp Scrn,U Negative (Negative); Barbiturate Screen,Urine Negative (Negative); Benzodiazepines Screen,Urine Negative (Negative); Benzoylecgonine Screen, Ur Negative (Negative); Fentanyl Screen,Urine Negative (Negative); Opiate Screen,Urine Negative (Negative); THC Screen,Urine Negative (Negative)
[2025-06-12 16:40] LABS: INR 1.1 (0.9-1.3); Partial Thromboplastin Time 32.7 Seconds (22.0-36.0); Prothrombin Time 11.7 Seconds (9.0-12.2)
[2025-06-12 16:51] LABS: Alanine Aminotransferase 39 U/L (10-49); Albumin, Serum 4.4 gm/dL (3.5-5.0); Albumin/Globulin Ratio 1.5 (1.2-2.2); Alkaline Phosphatase 123 U/L (46-116); Anion Gap 11 (7-16); Aspartate Amino Transferase 38 U/L (0-34); BUN/Creatinine Ratio 7 Ratio (12-20); Bilirubin,Total 0.6 mg/dL (0.3-1.2); Blood Urea Nitrogen 5 mg/dL (9-23); Calcium 9.7 mg/dL (8.3-10.6); Calcium (Corrected) 9.7 mg/dL (8.5-10.1); Carbon Dioxide 23.5 mMol/L (20.0-31.0); Chloride 96 mMol/L (98-107); Creatinine (Component) 0.7 mg/dL (0.6-1.3); Estimated Creatinine Clearance 66.5 mL/min (>60); Globulin 2.9 gm/dL (2.3-3.5); Glucose 119 mg/dL (74-106); LDH (Lactate Dehydrogenase) 201 U/L (120-246); Magnesium 1.6 mg/dL (1.6-2.6); Osmolality,Calculated 259 (275-295); Potassium 5.1 mMol/L (3.4-5.1); Sodium 130 mMol/L (136-145); Total Protein 7.3 gm/dL (5.7-8.2); eGFR > 60 See Note
== END 2025-06-12 18:31 | disposition home or self-care (01) ==
PROVIDERS: Registered Nurse General Practice; Emergency Provider Emergency Medicine
DX: E11.649 Type 2 diabetes mellitus with hypoglycemia without coma (principal); E87.6 Hypokalemia; R51.9 Headache, unspecified
CPT/HCPCS: 36415; 36600; 70450; 80053; 80307; 81001; 82803; 83615; 83735; 85025; 85610; 85730; 96365; 96366; 96375; 96376; 99283; J0780; J1885; J2405; J3480; J7030; A9270

== ENCOUNTER 2025-06-15 16:39 | Emergency (ER) | payer MEDICAID, SELFPAY ==
[2025-06-15 17:03] VITALS: PULSE 98; RESP 17; O2SAT 99
[2025-06-15 17:25] VITALS: BP 141/71; PULSE 111; RESP 19; TEMP 37.2; O2SAT 98; BMI 31.9
--- NOTE | 2025-06-15 17:29 | PD.EDRME ---
Rapid Medical Screening Exam RME Arrival date/time: 06/15/25 16:39 60-year-old female with no known medical history presents to the emergency room with a chief complaint of a headache, and generalized bodyaches throughout her body x 1 day I have greeted and performed a focused initial assessment of this patient. A comprehensive ED assessment and evaluation of the patient, analysis of all test results, and completion of the medical decision making process will be conducted by additional ED providers. Chief Complaint: General Adult/Misc Complain Vital signs: Vital Signs Temperature 99.0 F 06/15/25 17:25 Pulse Rate 111 H 06/15/25 17:25 Respiratory Rate 19 06/15/25 17:25 Blood Pressure 141/71 H 06/15/25 17:25 Pulse Oximetry (%) 98 06/15/25 17:25 Oxygen Delivery Method Room Air 06/15/25 17:25 Vital signs reviewed by provider: Yes
[2025-06-15] MEDS: KETOROLAC INJ 60 MG/2 ML VIAL 30 MG IM (17:54)
[2025-06-15] MEDS: METOCLOPRAMIDE 5 MG TABLET 10 MG PO (17:54)
[2025-06-15 18:10] LABS: Basophils # (Auto) 0.1 Thou/mm3 (0.0-0.2); Basophils % (Auto) 1 % (0-2.5); Eosinophils # (Auto) 0.8 Thou/mm3 (0.0-0.5); Eosinophils % (Auto) 6 % (0-10); Hematocrit 39.0 % (36.0-46.0); Hemoglobin 13.2 g/dL (12.0-16.0); Immature Granulocytes Auto 0.05 Thou/mm3 (0.00-0.00); Lymphocytes # (Auto) 3.1 Thou/mm3 (1.0-4.8); Lymphocytes % (Auto) 24 % (10-50); Mean Corpuscular HGB Conc 33.8 g/dl (31.0-37.0); Mean Corpuscular Hemoglobin 27.0 pg (25.0-35.0); Mean Corpuscular Volume 80 fL (80-100); Monocytes # (Auto) 1.0 Thou/mm3 (0.0-0.8); Monocytes % (Auto) 8 % (0-12); Neutrophils # (Auto) 8.1 Thou/mm3 (1.8-7.7); Neutrophils % (Auto) 62 % (37-80); Nucleated Red Blood Cell # 0.00 Thou/mm3 (0.00-0.00); Nucleated Red Blood Cell % 0 /100 WBC (0); Platelet Count 254 Thou/mm3 (140-440); RDW Standard Deviation 41.8 fL (36.4-46.3); Red Blood Count 4.88 Miln/mm3 (4.00-5.20); White Blood Count 13.1 Thou/mm3 (3.6-11.0)
[2025-06-15 18:22] LABS: Collection Type, Urine Clean Catch
[2025-06-15 18:28] LABS: Alanine Aminotransferase 45 U/L (10-49); Albumin, Serum 4.7 gm/dL (3.5-5.0); Albumin/Globulin Ratio 1.6 (1.2-2.2); Alkaline Phosphatase 125 U/L (46-116); Anion Gap 10 (7-16); Aspartate Amino Transferase 40 U/L (0-34); BUN/Creatinine Ratio 9 Ratio (12-20); Bilirubin,Total 0.3 mg/dL (0.3-1.2); Blood Urea Nitrogen 9 mg/dL (9-23); Calcium 10.2 mg/dL (8.3-10.6); Calcium (Corrected) 10.2 mg/dL (8.5-10.1); Carbon Dioxide 26.7 mMol/L (20.0-31.0); Chloride 96 mMol/L (98-107); Creatinine (Component) 1.0 mg/dL (0.6-1.3); Estimated Creatinine Clearance 52.9 mL/min (>60); Globulin 3.0 gm/dL (2.3-3.5); Glucose 124 mg/dL (74-106); Osmolality,Calculated 266 (275-295); Potassium 4.1 mMol/L (3.4-5.1); Sodium 133 mMol/L (136-145); Total Protein 7.7 gm/dL (5.7-8.2); eGFR > 60 See Note
[2025-06-15 18:28] LABS: Bilirubin,Urine Negative (Negative); Blood,Urine Negative (Negative); Clarity,Urine Clear (Clear/Hazy); Color,Urine Colorless (Lt Yel-Yel); Culture Indicated,Urine Not Indicated; Glucose, Urine 4+ (Negative); Ketones,Urine Negative (Negative); Leukocyte Esterase,Urine Negative (Negative); Nitrite,Urine Negative (Negative); PH,Urine 6.5 (5.0-7.0); Protein,Urine Negative (Neg - Trace); RBC,Urine < 1 /hpf (0-3); Specific Gravity,Urine 1.003 (1.001-1.035); Squamous Epithelial Cell,Urine 1 /hpf (0-5); Urobilinogen,Urine Negative mg/dL (0.0-1.0); WBC,Urine < 1 /hpf (0-5)
[2025-06-15 18:34] LABS: Amphetamine/Methamp Scrn,U Negative (Negative); Barbiturate Screen,Urine Negative (Negative); Benzodiazepines Screen,Urine Negative (Negative); Benzoylecgonine Screen, Ur Negative (Negative); Fentanyl Screen,Urine Negative (Negative); Opiate Screen,Urine Positive (Negative); THC Screen,Urine Negative (Negative)
--- NOTE | 2025-06-15 19:34 | EDNOTE_ITS ---
ED General RME/HPI General Chief complaint: General Adult/Misc Complain Stated complaint: BODY PAIN Arrival date/time: 06/15/25 16:39 RME / HPI RME / HPI narrative: 06/15/25 16:39 60-year-old female with no known medical history presents to the emergency room with a chief complaint of a headache, and generalized bodyaches throughout her body x 1 day I have greeted and performed a focused initial assessment of this patient. A comprehensive ED assessment and evaluation of the patient, analysis of all test results, and completion of the medical decision making process will be conducted by additional ED providers. --------- Dr. Eagle?s Main ED Evaluation: 60yo female with a history of chronic pain/fibromyalgia on muscle relaxer reports worsening lower back pain with radiation to her bilateral buttocks. No weakness of BLE. Denies sacral paresthesia or urinary/bowel dysfunction. No recent trauma. No fever, URI, or cough. PMH includes fibromyalgia/chronic pain syndrome, DM. PSH noncontributory. Social history is unremarkable for alcohol or illicit drug use. Related Data Previous Rx's ?Medication ?Instructions ?Recorded ibuprofen 800 mg tablet 800 mg PO TID PRN pain #30 t abs 02/06/21 hydrocodone 5 mg-acetaminophen 325 1 tab PO BID PRN pa in #10 tabs 04/16/21 mg tablet ibuprofen 800 mg tablet 800 mg PO TID PRN pain #30 t abs 04/16/21 cyclobenzaprine 5 mg tablet 5 mg PO BID PRN muscle spa sm #14 08/30/21 tabs ibuprofen 600 mg tablet 600 mg PO Q8H PRN fever or p ain 08/30/21 #30 tabs dextromethorphan-guaifenesin 10 10 ml PO Q8H PRN cough #500 mL 10/29/23 mg-100 mg/5 mL oral liquid ibuprofen 600 mg tablet 600 mg PO TID PRN pain #30 t abs 10/29/23 benzonatate 200 mg capsule 200 mg PO TID PRN cough #20 caps 03/28/24 ibuprofen 600 mg tablet 600 mg PO TID PRN pain #30 t abs 03/28/24 hydrocodone 5 mg-acetaminophen 325 1 tab PO Q6H PRN pa in #8 tabs 05/28/25 mg tablet rizatriptan 10 mg tablet (Maxalt) 10 mg PO Q2H PRN shon campos headache 06/06/25 #30 tabs potassium chloride 10 mEq oral 10 meq PO QDAY #4 ea packet potassium chloride 10 mEq 10 meq PO QDAY #5 caps 06/13 capsule,extended release Allergies Allergy/AdvReac Type Severity Reaction Status Date / Time acetaminophen Allergy Unknown Verified 06/15/25 17:08 gabapentin AdvReac Mild Drowsy Verified 06/15/25 17:08 ibuprofen AdvReac Mild Abdominal Verified 06/15/25 17:08 Pain semaglutide (From Ozempic) AdvReac Mild Abdominal Verified 06/15/25 17:08 Pain Review of Systems Review of Systems Systems Reviewed: All systems reviewed, normal except as documented ED Exam Narrative Physical exam: GENERAL APPEARANCE: alert and oriented x 4, well-developed, well-nourished, complains of lower back pain with radiation to her bilateral buttocks VITALS: All vitals were reviewed and the pulse ox is 98% on room air, which is normal according to my interpretation. HEENT: Normocephalic, atraumatic; pupils equal, round, reactive to light; EOMI; mucous membranes pink, moist; oropharynx clear NECK: Supple LUNGS: CTABL; no wheezes, no rales, no rhonchi HEART: Regular rate, regular rhythm; normal S1, S2; no murmurs ABDOMEN: non distended; normal BS; soft, no tenderness, no guarding, no rebound; no masses, no organomegaly, no hernia BACK: generalized tenderness throughout the midline lumbar spine and paralumbar region, limited ROM secondary to pain, no overlying skin changes EXTREMITIES: atraumatic; no edema NEUROLOGIC: awake; alert and oriented x4; cranial nerves II-XII grossly intact; no focal sensory or motor deficits; positive SLR test to BLE; gait observed PSYCHIATRIC: appropriate mood and affect SKIN: warm, dry, normal color; no rashes Course Quality Measures none Orders Category Date Time Status Bedside COVID-19 Antigen Test NOW Care 06/15/25 17:31 Active Bedside Influenza A&B Antigen Test NOW Care 06/15/25 17:31 Completed MRI Screening NOW Care 06/16/25 01:[address] lumbar spine wo con Stat Exams 06/15/25 19:[address] thoracic spine wo con Stat Exams 06/15/25 19:52 Completed MR lumbar spine wo/w con Stat Exams 06/16/25 Ordered C-Reactive Protein Stat Lab 06/15/25 17:43 Completed CBC Stat Lab 06/15/25 17:43 Completed CMP [Comprehensive Metabolic Panel] Stat Lab 06/15/25 17:43 Completed Drug Screen,Urine Stat Lab 06/15/25 18:11 Completed Sed Rate (ESR) Stat Lab 06/15/25 17:43 Completed UA, C/S IF [Urinalysis, C/S if Indicated] Stat Lab 06/15/25 18:11 Completed Amitriptyline HCl [Elavil] Med 06/16/25 02:16 Discontinued 100 mg PO X1 ONE CYCLObenzaPRINE [Flexeril] Med 06/15/25 19:53 Discontinued 5 mg PO X1 ONE Dexamethasone Inj [Decadron Inj] Med 06/15/25 19:53 Discontinued 10 mg IM X1 ONE DiphenhydrAMINE [Benadryl] Med 06/15/25 17:28 Discontinued 25 mg PO X1 ONE Ketorolac Inj [Toradol Inj] Med 06/15/25 17:28 Discontinued 30 mg IM X1 ONE Metoclopramide [Reglan] Med 06/15/25 17:28 Discontinued 10 mg PO X1 ONE Midazolam Inj [Versed Inj] Med 06/16/25 06:11 Discontinued 1 mg IVP X1 ONE Morphine* Inj Med 06/16/25 06:11 Discontinued 2 mg IVP X1 ONE Morphine* Inj Med 06/15/25 19:53 Discontinued 4 mg IM X1 ONE Vital Signs Vital signs: Vital Signs Temperature 99.0 F 06/15/25 17:25 Pulse Rate 111 H 06/15/25 17:25 Respiratory Rate 19 06/15/25 17:25 Blood Pressure 141/71 H 06/15/25 17:25 Pulse Oximetry (%) 98 06/15/25 17:25 Oxygen Delivery Method Room Air 06/15/25 17:25 Discharge Plan Prescriptions/Referrals Prescriptions/Med Rec: No Action ibuprofen 800 mg tablet 800 mg PO TID PRN (Reason: pain) Qty: 30 0RF hydrocodone-acetaminophen 5-325 mg tablet 1 tab PO BID MDD 10 PRN (Reason: pain) Qty: 10 0RF ibuprofen 800 mg tablet 800 mg PO TID PRN (Reason: pain) Qty: 30 0RF cyclobenzaprine 5 mg tablet 5 mg PO BID PRN (Reason: muscle spasm) Qty: 14 0RF ibuprofen 600 mg tablet 600 mg PO Q8H PRN (Reason: fever or pain) Qty: 30 0RF dextromethorphan-guaifenesin 10-100 mg/5 mL liquid 10 ml PO Q8H PRN (Reason: cough) Qty: 500 0RF ibuprofen 600 mg tablet 600 mg PO TID PRN (Reason: pain) Qty: 30 0RF rizatriptan [Maxalt] 10 mg tablet 10 mg PO Q2H PRN (Reason: migraine headache) Qty: 30 0RF Rx Instructions: do not exceed 3 doses per 24 hrs potassium chloride 10 mEq packet 10 meq PO QDAY Qty: 4 0RF potassium chloride 10 mEq capsule, extended release 10 meq PO QDAY Qty: 5 0RF benzonatate 200 mg capsule 200 mg PO TID PRN (Reason: cough) Qty: 20 0RF ibuprofen 600 mg tablet 600 mg PO TID PRN (Reason: pain) Qty: 30 0RF hydrocodone-acetaminophen 5-325 mg tablet 1 tab PO Q6H MDD max 4 tabs per day PRN (Reason: pain) Qty: 8 0RF Referrals: Orlin Barrett MANAGER CLINICAL [Primary Care Provider] - In 1 week Problem List Clinical Impression: T12 compression fracture Patient/Caregiver Discharge Instructions Print Language: Yi MDM Narrative MDM hospital course (for use when minimal MDM required): Scribe Attestation: 06/15/25 - Ernestine King am scribing for and in the presence of Dr. Eagle. 60yo female with a history of chronic pain/fibromyalgia on muscle relaxer reports worsening lower back pain with radiation to her bilateral buttocks. No weakness of BLE. Please see PE findings. Lab markers demonstrated marginally elevated WBC count of 13, no left shift or bandemia. Chemistries unremarkable except for mildly elevated blood sugar and calcium. UA without evidence of infection. Patient treated with narcotic analgesics, muscle relaxants, and IM steroids with mild-moderate relief. Although no objective motor findings on exam, patient has difficulty bearing weight and appears to have unsteady, wide-based stance. Given bilateral sciatica-based symptoms, patient was referred for CT thoracic and lumbar spine which demonstrates severe diffuse osteopenia, severe compression fracture at T12 which appears to be chronic, and central disc bulge at L5 and S1 impinging the bilateral S1 nerve roots. There's additionally bilateral neural foraminal stenosis due to spondylolisthesis. Although no distinct evidence of osteomyelitis, MRI will be performed in AM. Findings appear to correlate with patient's symptoms and have been progressively impairing patient's ability to bare weight and walk. AM provider to follow. Dx: severe chronic T12 compression fracture, HNP L5 with nerve root compression Clinical Information Provided by: patient Medical Records reviewed [facility] (Per chart review, patient was seen here on 06/12/25 for hypoglycemia.) Meds/Rx considered, not ordered None Labs/Rad/Tests considered, not ordered None Chronic Illness/Social Conditions Explain: Hx fibromyalgia, DM EKG EKG not done Labs Labs: interpreted by me Imaging Imaging interpretation: interpreted by me Imaging Interpretation(s): [place] [facility] Report Signed Patient: SHEA FERMIN [facility]. Record#: [id number] Birthdate: 1965 Age/Sex: 60 / F Location: [facility] Attending Dr: Ordering Physician: Maicol Womack DO Date of Service: 06/15/25 Procedure(s): CT thoracic spine wo con Accession Number(s): [id number] cc: Orlin Barrett MANAGER CLINICAL; Maicol Womack DO; Miguel Knowles MD~ Examination: CT thoracic spine, without contrast. 2-D sagittal reconstructions. 2-D coronal reconstructions. 3-D reconstructions. Date and time of exam:June 15, 2025 2102 hrs. Indications: Generalized back pain today CTDI: vol (mGy):23.5 DLP: (mGycm):775 Technique: Multiple 1.25 mm axial sections of the thoracic spine without intravenous contrast have been obtained. 2-D sagittal and coronal reconstructions have been obtained. 3-D reconstructions have been obtained. Low dose protocols were performed. One or more of the following dose reduction techniques were used; automated exposure control, adjustment of the mA and/or KV according to patient size, use of iterative reconstruction technique. Findings: Severe osteopenia Severe chronic osteoporotic compression T12 vertebral body, retropulsion of the posterior superior margin of this vertebral body 6 mm Moderate chronic compression T11 T9 No cortical bone destruction No osteomyelitis or discitis Impression: Severe osteopenia Severe chronic compression T12 vertebral body, retropulsion of the posterior superior margin of this vertebral body 6 mm MRI thoracic spine follow-up would best assess for impingement upon the conus medullaris secondary to this compressed vertebral body No plain CT findings of osteomyelitis discitis Dictated By: Miguel Knowles MD Signed By: <Electronically signed by Miguel Knowles MD in OV> 06/15/250 [place] [facility] Report Signed Patient: SHEA FERMIN Record#: [id number] Birthdate: 1965 Age/Sex: 60 / F Location: [facility] Attending Dr: Ordering Physician: Maicol Womack DO Date of Service: 06/15/25 Procedure(s): CT lumbar spine wo con Accession Number(s): [id number] cc: Orlin Barrett MANAGER CLINICAL; Maicol Womack DO; Miguel Knowles MD~ Examination: CT lumbar spine, without contrast. 2-D sagittal reconstructions. 2-D coronal reconstructions. 3-D reconstructions. Date and time of exam:June 15, thousand 25, 2105 hrs. Indications: Onset lower back pain today CTDI: vol (mGy):20.1 DLP: (mGycm):653 Technique: Multiple 1.25 mm axial sections of the lumbar spine without contrast have been obtained. 2-D sagittal and coronal reconstructions have been obtained. 3-D reconstructions have been obtained. Low dose protocols were performed. One or more of the following dose reduction techniques were used; automated exposure control, adjustment of the mA and/or KV according to patient size, use of iterative reconstruction technique. Findings: Severe osteopenia Severe compression fracture chronic T12 No acute lumbar fracture Grade 1 spondylolisthesis L5 on S1 Lumbar pedicles, laminae, transverse and posterior spinous processes intact Old fracture deformity fifth sacral segment L5-S1 5 mm central lumbar disc bulge contiguous with the right and left S1 nerve roots, the grade 1 spondylolisthesis L5 on S1 produces bilateral neural foraminal stenosis and mild bilateral L5 ganglionic compression More cephalad levels are unremarkable No cortical bone destruction involving contiguous margins of vertebral bodies Impression: No lumbar fracture L5-S1 5 mm central lumbar disc bulge contiguous with the right and left S1 nerve roots, the grade 1 spondylolisthesis L5 on S1 produces bilateral neural foraminal stenosis, mild bilateral L5 ganglionic compression No findings of osteomyelitis discitis, however MRI lumbar spine pre and postcontrast would be preferable in assessing for discitis Dictated By: Miguel Knowles MD Signed By: <Electronically signed by Miguel Knowles MD in OV> 06/15/25 7578 Medication Administration(s) Medication Administration History Discontinued Medications Amitriptyline HCl (Amitriptyline Hcl 25 Mg Tablet) 100 mg PO X1 ONE Stop: 06/16/25 02:17 Last Admin: 06/16/25 02:50 Dose: 100 mg Documented By: ANKUSH Cyclobenzaprine HCl (Cyclobenzaprine 5 Mg Tablet) 5 mg PO X1 ONE Stop: 06/15/25 19:54 Last Admin: 06/15/25 21:16 Dose: 5 mg Documented By: Dexamethasone Sodium Phosphate (Dexamethasone Sod Phos Inj 10 Mg/Ml Vial) 10 mg IM X1 ONE Stop: 06/15/25 19:54 Last Admin: 06/15/25 21:15 Dose: 10 mg Documented By: Diphenhydramine HCl (Diphenhydramine 25 Mg Capsule) 25 mg PO X1 ONE Stop: 06/15/25 17:29 Last Admin: 06/15/25 17:53 Dose: 25 mg Documented By: OA Ketorolac Tromethamine (Ketorolac Inj 60 Mg/2 Ml Vial) 30 mg IM X1 ONE Stop: 06/15/25 17:29 Last Admin: 06/15/25 17:54 Dose: 30 mg Documented By: OA Metoclopramide HCl (Metoclopramide 5 Mg Tablet) 10 mg PO X1 ONE Stop: 06/15/25 17:29 Last Admin: 06/15/25 17:54 Dose: 10 mg Documented By: OA Midazolam HCl (Midazolam Inj 1 Mg/Ml Vial 2 Ml) 1 mg IVP X1 ONE Stop: 06/16/25 06:12 Morphine Sulfate (Morphine Sulf Inj 4 Mg/Ml Vial) 4 mg IM X1 ONE Stop: 06/15/25 19:54 Last Admin: 06/15/25 21:16 Dose: 4 mg Documented By: Morphine Sulfate (Morphine Sulf Inj 4 Mg/Ml Vial) 2 mg IVP X1 ONE Stop: 06/16/25 06:12 see above Diagnosis Differential Diagnosis ED Complaint MDM: COVID, Influenza, dehydration, electrolyte abnormality, chronic back pain
--- NOTE | 2025-06-15 19:52 | XR_ITS ---
Examination: CT lumbar spine, without contrast. 2-D sagittal reconstructions. 2-D coronal reconstructions. 3-D reconstructions. Date and time of exam:June 15, thousand 25, 2105 hrs. Indications: Onset lower back pain today CTDI: vol (mGy):20.1 DLP: (mGycm):653 Technique: Multiple 1.25 mm axial sections of the lumbar spine without contrast have been obtained. 2-D sagittal and coronal reconstructions have been obtained. 3-D reconstructions have been obtained. Low dose protocols were performed. One or more of the following dose reduction techniques were used; automated exposure control, adjustment of the mA and/or KV according to patient size, use of iterative reconstruction technique. Findings: Severe osteopenia Severe compression fracture chronic T12 No acute lumbar fracture Grade 1 spondylolisthesis L5 on S1 Lumbar pedicles, laminae, transverse and posterior spinous processes intact Old fracture deformity fifth sacral segment L5-S1 5 mm central lumbar disc bulge contiguous with the right and left S1 nerve roots, the grade 1 spondylolisthesis L5 on S1 produces bilateral neural foraminal stenosis and mild bilateral L5 ganglionic compression More cephalad levels are unremarkable No cortical bone destruction involving contiguous margins of vertebral bodies Impression: No lumbar fracture L5-S1 5 mm central lumbar disc bulge contiguous with the right and left S1 nerve roots, the grade 1 spondylolisthesis L5 on S1 produces bilateral neural foraminal stenosis, mild bilateral L5 ganglionic compression No findings of osteomyelitis discitis, however MRI lumbar spine pre and postcontrast would be preferable in assessing for discitis
--- NOTE | 2025-06-15 19:52 | XR_ITS ---
Examination: CT thoracic spine, without contrast. 2-D sagittal reconstructions. 2-D coronal reconstructions. 3-D reconstructions. Date and time of exam:June 15, 2025 2102 hrs. Indications: Generalized back pain today CTDI: vol (mGy):23.5 DLP: (mGycm):775 Technique: Multiple 1.25 mm axial sections of the thoracic spine without intravenous contrast have been obtained. 2-D sagittal and coronal reconstructions have been obtained. 3-D reconstructions have been obtained. Low dose protocols were performed. One or more of the following dose reduction techniques were used; automated exposure control, adjustment of the mA and/or KV according to patient size, use of iterative reconstruction technique. Findings: Severe osteopenia Severe chronic osteoporotic compression T12 vertebral body, retropulsion of the posterior superior margin of this vertebral body 6 mm Moderate chronic compression T11 T9 No cortical bone destruction No osteomyelitis or discitis Impression: Severe osteopenia Severe chronic compression T12 vertebral body, retropulsion of the posterior superior margin of this vertebral body 6 mm MRI thoracic spine follow-up would best assess for impingement upon the conus medullaris secondary to this compressed vertebral body No plain CT findings of osteomyelitis discitis
[2025-06-15 20:14] LABS: Sed Rate (ESR) 59 mm/hr (0-30)
[2025-06-15 20:20] LABS: C-Reactive Protein 0.8 mg/dL (0.0-0.9)
[2025-06-15] MEDS: DEXAMETHASONE SOD PHOS INJ 10 MG/ML VIAL IM (21:15)
[2025-06-15] MEDS: MORPHINE SULF INJ 4 MG/ML VIAL IM (21:16)
--- NOTE | 2025-06-16 | XR_ITS ---
Examination: MRI lumbar spine, without intravenous contrast. MRI lumbar spine , with intravenous contrast. Exam date and time: June 16, 2025, 11:26 AM Indications: CT lumbar spine, clinical diagnosis osteomyelitis Technique: Multiple axial, sagittal and coronal images of the lumbar spine have been obtained with the Siemens high-resolution 1.5 Mable MRI scanner. Images obtained included T2 weighted fat suppressed sagittal sections, TR 3500, TE 46, T2 weighted coronal fat suppressed images, TR 3050, TE 84, T2-weighted transverse fat suppressed images, TR 30-60, TE 63, proton density transverse images, TR 4720, TE 46, and T1 weighted coronal images, TR 560, TE 13. Axial, sagittal and coronal images are obtained post intravenous injection 14 cc gadolinium. Findings: Adequate alignment lumbar vertebral bodies Severe chronic compression fracture T12 Postcontrast images demonstrate no findings of osteomyelitis or discitis, no abnormal osseous or epidural enhancement L5-S1 5 mm central lumbar disc bulge extending to the foraminal regions with mild bilateral L5 ganglionic compression More cephalad levels unremarkable Impression: Severe chronic compression fracture T12. No findings of osteomyelitis discitis L5-S1 5 mm central lumbar disc bulge extending to the foraminal regions with mild bilateral L5 ganglionic compression
--- NOTE | 2025-06-16 02:15 | PC.NURSE ---
PT WANTING SOMETHING TO SLEEP TAKE AMITRIPTYLINE AT HOME [address] CHIN.
[2025-06-16] MEDS: AMITRIPTYLINE HCL 25 MG TABLET 100 MG PO (02:50)
[2025-06-16 05:48] VITALS: BP 140/70; PULSE 89; RESP 17; TEMP 36.6; O2SAT 94
[2025-06-16] MEDS: MORPHINE SULF INJ 4 MG/ML VIAL 2 MG IVP ×2 (06:42→08:40)
--- NOTE | 2025-06-16 06:47 | PD.EDADDENDU ---
Emergency Room Addendum <Rachel Carmichael - Last Filed: 06/16/25 06:48> Addendum Narrative: 0600: Care assumed from Dr. Womack, the previous shift emergency physician. Past medical, surgical, social and family history reviewed. Vitals and home medications reviewed. I will assume the care of the patient at this time, pending spine MRI and final disposition. Please refer to the emergency department record for history and examination from initial visit.? Physical exam by me shows patient under no acute distress at this time. <Kiera Mayo MD - Last Filed: 06/16/25 14:01> Addendum Narrative: 0600: Care assumed from Dr. Womack, the previous shift emergency physician. Past medical, surgical, social and family history reviewed. Vitals and home medications reviewed. I will assume the care of the patient at this time, pending spine MRI and final disposition. Please refer to the emergency department record for history and examination from initial visit.? Physical exam by me shows patient under no acute distress at this time. Patient without any focal neurodeficits, no saddle anesthesia, patient strong in all 4 extremities, intact gluteal squeeze. MRI of the lumbar spine with and without contrast shows a severe, chronic compression fracture of T12. No findings of osteomyelitis or discitis. Patient has an L5-S1 5 mm central lumbar disc bulge extending to the foraminal regions with mild bilateral L5 ganglionic compression. Had extensive conversation with the patient, she confirms that her symptoms are chronic. She is pending evaluation by a pain specialist in the upcoming month. Patient is hemodynamically stable not distressed will discharge home with close return precautions and follow-up with primary care doctor. 2p patient ambulated to the bathroom multiple times, walking briskly without any difficulties, no instability appreciated, pain well-controlled.
[2025-06-16 06:50] VITALS: BP 130/72; PULSE 88; RESP 19; TEMP 36.6; O2SAT 98
[2025-06-16] MEDS: MIDAZOLAM INJ 1 MG/ML VIAL 2 ML IVP (11:04)
[2025-06-16 12:43] VITALS: BP 124/80; PULSE 81; RESP 16; TEMP 36.6; O2SAT 98
[2025-06-16] MEDS: MORPHINE SULF INJ 4 MG/ML VIAL 1 MG IVP (14:37)
[2025-06-16 14:39] VITALS: BP 134/76; PULSE 96; RESP 15; O2SAT 100
--- NOTE | 2025-06-16 15:01 | PC.CC ---
[employer] received notice of Pt in need of transportation home. [employer] requested [employer] transport for Pt.
== END 2025-06-16 14:48 | disposition home or self-care (01) ==
PROVIDERS: Nurse Practitioner Family; Emergency Provider Emergency Medicine; PCP Nurse Practitioner Family
DX: M48.54XA Collapsed vertebra, not elsewhere classified, thoracic region, initial encounter for fracture (principal); M51.370 Other intervertebral disc degeneration, lumbosacral region with discogenic back pain only; M43.17 Spondylolisthesis, lumbosacral region; M48.07 Spinal stenosis, lumbosacral region; G95.29 Other cord compression; M85.88 Other specified disorders of bone density and structure, other site; Z11.52 Encounter for screening for COVID-19
CPT/HCPCS: 36415; 72128; 72131; 72158; 80053; 80307; 81001; 85025; 85652; 86140; 87400; 87811; 99285; A9577; J1100; J1885; J2250; J2270; A9270

== ENCOUNTER 2025-07-11 10:50 | Emergency (ER) | payer MEDICAID, SELFPAY ==
[2025-07-11 10:51] VITALS: BP 162/77; PULSE 52; PULSE 62; RESP 18; RESP 19; TEMP 36.3; O2SAT 97; O2SAT 99; BMI 24.2
--- NOTE | 2025-07-11 10:54 | EKG_ITS ---
[facility] Test Date: 2025-07-11 Pat Name: SHEA FERMIN Department: Room: - Gender: Female [employer]: : 1965 Requested By: Jessica Blood Order Number: [id number] Reading MD: Jessica Blood Measurements Intervals [place]ley Rate: 51 P: 43 HI: 179 QRS: -18 QRSD: 86 T: 17 QT: 464 QTc: 431 Interpretive Statements SINUS BRADYCARDIA Compared to ECG 06/09/2025 22:21:08 Sinus rhythm no longer present Myocardial infarct finding no longer present /store/S0/[id number]
--- NOTE | 2025-07-11 10:54 | XR_ITS ---
Examination: CT brain head without contrast. 2-D sagittal coronal reconstructions Date and time of exam: July 11, 2025, 1127 hours, comparison 06/12/2025 Onset left-sided body weakness and facial paresthesias beginning 1 hour ago CTDI: vol (mGy): 47 DLP: (mGycm): 973 Technique: Multiple CT axial sections of the brain have been obtained, 5 mm slice thickness. Contrast has not been administered. 2-D sagittal, coronal reconstructions have been obtained Low dose protocols were performed. One or more of the following dose reduction techniques were used; automated exposure control, adjustment of the mA and/or KV according to patient size, use of iterative reconstruction technique. Findings: No significant ventricular enlargement. Intra-axial or extra-axial hemorrhage density is not seen. No mass effect or midline shift Basal cisterns are not remarkable. Fourth ventricle is midline. Cranial vault intact. Impression: Negative for acute hemorrhage, mass effect or midline shift If clinically warranted, brain MRI follow-up would best assess for demyelinating disease, acute ischemic change
--- NOTE | 2025-07-11 10:54 | XR_ITS ---
EXAMINATION: AP chest single view TECHNIQUE: AP portable upright chest single view Date and time: July 11, 2025, 12 INDICATIONS: Chest pain today. FINDINGS: Normal heart size Lungs are clear. The osseous factors are intact IMPRESSION: No active disease
--- NOTE | 2025-07-11 11:24 | PC.NURSE ---
Patient presents to ED with c/o headache, numbness and tingling to body. Patient is alert and oriented, ambulatory. Patient taken to CT via gurney with savannah Cerrato.
[2025-07-11 11:37] VITALS: PULSE 56
[2025-07-11 11:38] LABS: Basophils # (Auto) 0.1 Thou/mm3 (0.0-0.2); Basophils % (Auto) 1 % (0-2.5); Eosinophils # (Auto) 0.6 Thou/mm3 (0.0-0.5); Eosinophils % (Auto) 7 % (0-10); Hematocrit 39.8 % (36.0-46.0); Hemoglobin 13.2 g/dL (12.0-16.0); Immature Granulocytes Auto 0.04 Thou/mm3 (0.00-0.00); Lymphocytes # (Auto) 2.7 Thou/mm3 (1.0-4.8); Lymphocytes % (Auto) 32 % (10-50); Mean Corpuscular HGB Conc 33.2 g/dl (31.0-37.0); Mean Corpuscular Hemoglobin 27.0 pg (25.0-35.0); Mean Corpuscular Volume 82 fL (80-100); Monocytes # (Auto) 0.7 Thou/mm3 (0.0-0.8); Monocytes % (Auto) 8 % (0-12); Neutrophils # (Auto) 4.3 Thou/mm3 (1.8-7.7); Neutrophils % (Auto) 52 % (37-80); Nucleated Red Blood Cell # 0.00 Thou/mm3 (0.00-0.00); Nucleated Red Blood Cell % 0 /100 WBC (0); Platelet Count 215 Thou/mm3 (140-440); RDW Standard Deviation 43.5 fL (36.4-46.3); Red Blood Count 4.88 Miln/mm3 (4.00-5.20); White Blood Count 8.3 Thou/mm3 (3.6-11.0)
[2025-07-11 11:50] LABS: INR 1.0 (0.9-1.3); Partial Thromboplastin Time 30.2 Seconds (22.0-36.0); Prothrombin Time 10.9 Seconds (9.0-12.2)
[2025-07-11 11:57] LABS: Alanine Aminotransferase 102 U/L (10-49); Albumin, Serum 4.5 gm/dL (3.5-5.0); Albumin/Globulin Ratio 1.9 (1.2-2.2); Alcohol, Blood Medical < 3.0 mg/dL (0-10.0); Alkaline Phosphatase 110 U/L (46-116); Anion Gap 11 (7-16); Aspartate Amino Transferase 80 U/L (0-34); BUN/Creatinine Ratio 10 Ratio (12-20); Bilirubin,Total 0.4 mg/dL (0.3-1.2); Blood Urea Nitrogen 7 mg/dL (9-23); Calcium 9.0 mg/dL (8.3-10.6); Calcium (Corrected) 9.0 mg/dL (8.5-10.1); Carbon Dioxide 23.3 mMol/L (20.0-31.0); Chloride 102 mMol/L (98-107); Creatinine (Component) 0.7 mg/dL (0.6-1.3); Estimated Creatinine Clearance 66.0 mL/min (>60); Globulin 2.4 gm/dL (2.3-3.5); Glucose 124 mg/dL (74-106); Lipase 40 U/L (12-53); Magnesium 1.8 mg/dL (1.6-2.6); Osmolality,Calculated 270 (275-295); Potassium 3.8 mMol/L (3.4-5.1); Sodium 136 mMol/L (136-145); Total Protein 6.9 gm/dL (5.7-8.2); Troponin I < 0.002 ng/mL (0.0-0.045); eGFR > 60 See Note
[2025-07-11 12:06] LABS: Collection Type, Urine Clean Catch
[2025-07-11 12:06] LABS: B-Type Natriuretic Peptide 35 pg/mL (0-100)
[2025-07-11 12:13] VITALS: BP 152/78; PULSE 57; RESP 16; TEMP 36.4; O2SAT 100
[2025-07-11 12:18] LABS: Amphetamine/Methamp Scrn,U Negative (Negative); Barbiturate Screen,Urine Negative (Negative); Benzodiazepines Screen,Urine Negative (Negative); Benzoylecgonine Screen, Ur Negative (Negative); Fentanyl Screen,Urine Negative (Negative); Opiate Screen,Urine Negative (Negative); THC Screen,Urine Negative (Negative)
[2025-07-11 12:24] LABS: Bacteria,Urine Rare; Bilirubin,Urine Negative (Negative); Blood,Urine Negative (Negative); Clarity,Urine Clear (Clear/Hazy); Color,Urine Colorless (Lt Yel-Yel); Culture Indicated,Urine Not Indicated; Glucose, Urine 4+ (Negative); Ketones,Urine Negative (Negative); Leukocyte Esterase,Urine Positive (Negative); Nitrite,Urine Negative (Negative); PH,Urine 7.0 (5.0-7.0); Protein,Urine Negative (Neg - Trace); RBC,Urine 2 /hpf (0-3); Specific Gravity,Urine 1.001 (1.001-1.035); Squamous Epithelial Cell,Urine 1 /hpf (0-5); Urobilinogen,Urine Negative mg/dL (0.0-1.0); WBC,Urine 8 /hpf (0-5)
[2025-07-11] MEDS: HYDROcodone/APAP 5/325 TABLET 1 TAB PO ×2 (12:49→14:40)
--- NOTE | 2025-07-11 14:36 | EDNOTE_ITS ---
ED Headache RME/HPI General Chief Complaint: Headache Stated Complaint: HEADACHE Time Seen by Provider: 07/11/25 10:56 Arrival date/time: 07/11/25 10:50 RME / HPI RME / HPI Narrative: 60 year old female with history of TIAs, frequent migraine headaches (currently on Rizatriptan) presents to the ED BIBA from home for evaluation of headache and global weakness that began after waking today. The headache is described as aching throbbing in sensation and similar to previous migraine headaches, rating as moderate to severe. Not improved with taking two extra strength Tylenol. Accompanied by facial numbness and speaking funny . Per medics, on scene patients was evaluated for stroke and G-FAST was 0. State patient had no unilateral weakness, strength equal in all extremities, obvious facial droop or slurred speech. States she last took her migranie medication Rizatriptan 3 days ago and does not take every day because of my kidneys . Prehospital BG 180, blood pressure 128/90, HR 63, saturating 99% on room air. Patient denies fever, chills, sweating. Denies chest pain, cough, shortness of breath. Denies nausea, vomiting, diarrhea, constipation. Denies dysuria, urinary frequency and urgency. Related Data Previous Rx's ?Medication ?Instructions ?Recorded ibuprofen 800 mg tablet 800 mg PO TID PRN pain #30 t abs 02/06/21 hydrocodone 5 mg-acetaminophen 325 1 tab PO BID PRN pa in #10 tabs 04/16/21 mg tablet ibuprofen 800 mg tablet 800 mg PO TID PRN pain #30 t abs 04/16/21 cyclobenzaprine 5 mg tablet 5 mg PO BID PRN muscle spa sm #14 08/30/21 tabs ibuprofen 600 mg tablet 600 mg PO Q8H PRN fever or p ain 08/30/21 #30 tabs dextromethorphan-guaifenesin 10 10 ml PO Q8H PRN cough #500 mL 10/29/23 mg-100 mg/5 mL oral liquid ibuprofen 600 mg tablet 600 mg PO TID PRN pain #30 t abs 10/29/23 benzonatate 200 mg capsule 200 mg PO TID PRN cough #20 caps 03/28/24 ibuprofen 600 mg tablet 600 mg PO TID PRN pain #30 t abs 03/28/24 hydrocodone 5 mg-acetaminophen 325 1 tab PO Q6H PRN pa in #8 tabs 05/28/25 mg tablet rizatriptan 10 mg tablet (Maxalt) 10 mg PO Q2H PRN shon campos headache 06/06/25 #30 tabs potassium chloride 10 mEq oral 10 meq PO QDAY #4 ea packet potassium chloride 10 mEq 10 meq PO QDAY #5 caps 06/13 capsule,extended release Allergies Allergy/AdvReac Type Severity Reaction Status Date / Time acetaminophen Allergy Unknown Verified 06/15/25 17:08 gabapentin AdvReac Mild Drowsy Verified 06/15/25 17:08 ibuprofen AdvReac Mild Abdominal Verified 06/15/25 17:08 Pain semaglutide (From Ozempic) AdvReac Mild Abdominal Verified 06/15/25 17:08 Pain Review of Systems Review of Systems Systems Reviewed: All systems reviewed, normal except as documented Past Medical History Past Medical History NEUROLOGIC: Positive Migraine CARDIAC: Positive Hypercholesterolemia and Hypertension MUSCULOSKELETAL: Positive Musculoskeletal Disorders, Arthritis, Degenerative Disk Disease and Fibromyalgia ENDOCRINE: Positive Diabetes Mellitus Type 2 OTHER HISTORY: Positive Autoimmune Disease Surgical History SURGICAL: Positive Abdominal Surgery Social History SMOKING STATUS: Current every day smoker ED Exam Narrative Physical exam: GENERAL APPEARANCE: alert and oriented x 4, well-developed, well-nourished, no acute distress HEENT: Normocephalic, atraumatic; pupils equal, round, reactive to light; EOMI; mucous membranes pink, moist; oropharynx clear NECK: Supple LUNGS: CTABL; no wheezes, no rales, no rhonchi HEART: Regular rate, regular rhythm; normal S1, S2; no murmurs ABDOMEN: non distended; normal BS; soft, no tenderness, no guarding, no rebound; no masses, no organomegaly, no hernia BACK: no CVA tenderness EXTREMITIES: atraumatic; no edema NEUROLOGIC: awake; alert and oriented x4; cranial nerves II-XII grossly intact; no focal sensory or motor deficits PSYCHIATRIC: appropriate mood and affect SKIN: warm, dry, normal color; no rashes Course Course Course Narrative: 1350: On reassessment, the patient states her headache initially had improved after [place] though feels it is coming back. We reviewed all the results, analysis, and treatment plans. Plan to give the patient an additional dose of [place] and DC home. Patient is amenable to discharge. Strict return precautions were outlined. Quality Measures none Orders Category Date Time Status Transitional Care Liaison NOW Care 07/11/25 10:54 Completed EKG (ED ONLY) *Do not use* NOW Care 07/11/25 10:[address] head/brain wo con Stat Exams 07/11/25 10:54 Completed EKG (ED Only) Stat Exams 07/11/25 10:54 Draft XR chest 1V portable Stat Exams 07/11/25 10:54 Completed Alcohol, Blood Medical Stat Lab 07/11/25 11:19 Completed B-Type Natriuretic Peptide Stat Lab 07/11/25 11:19 Completed CBC Stat Lab 07/11/25 11:19 Completed Comprehensive Metabolic Panel Stat Lab 07/11/25 11:19 Completed Drug Screen,Urine Stat Lab 07/11/25 11:51 Completed Lipase Stat Lab 07/11/25 11:19 Completed Magnesium Stat Lab 07/11/25 11:19 Completed Partial Thromboplastin Time Stat Lab 07/11/25 11:19 Completed Prothrombin Time with INR Stat Lab 07/11/25 11:19 Completed Troponin I Stat Lab 07/11/25 11:19 Completed UA, C/S IF [Urinalysis, C/S if Indicated] Stat Lab 07/11/25 11:51 Completed HYDROcodone*/APAP 5/325 [[place] 5/325] Med 07/11/25 12:18 Discontinued 1 tab PO X1 ONE HYDROcodone*/APAP 5/325 [[place] 5/325] Med 07/11/25 13:53 Discontinued 1 tab PO X1 ONE Vital Signs Vital signs: Vital Signs Temperature 97.4 F 07/11/25 10:51 Pulse Rate 52 L 07/11/25 10:51 Respiratory Rate 19 07/11/25 10:51 Blood Pressure 162/77 H 07/11/25 10:51 Pulse Oximetry (%) 99 07/11/25 10:51 Oxygen Delivery Method Room Air 07/11/25 10:51 Pulse ox is 99% on room air which is adequate. Headache MDM Narrative MDM Narrative:: Carla King am scribing for and in the presence of Dr. Ayala. Patient data External records reviewed:: [facility] previous records and EMS form Clinical information provided by:: patient and EMS Social determinants that could affect healthcare access:: none Patient has the following chronic illnesses:: TIAs, migraine headaches How is presenting disease/condition affected by chronic disease/condition?: exacerbated by Evaluation data The following diagnostics were reviewed and interpreted by me:: lab results, radiology exam(s) and EKG tracing(s) (EKG @ 11:39 AM. Sinus bradycardia, rate 51, no STEMI. ) Lab and/or radiology exams considered but not ordered:: None Interpretation Summary: Ordering Physician: Jessica Ayala MD Date of Service: 07/11/25 Procedure(s): XR chest 1V portable Accession Number(s): [id number] cc: Orlin Barrett NP; Miguel Knowles MD; Jessica Ayala MD~ EXAMINATION: AP chest single view TECHNIQUE: AP portable upright chest single view Date and time: July 11, 2025, 12 INDICATIONS: Chest pain today. FINDINGS: Normal heart size Lungs are clear. The osseous factors are intact IMPRESSION: No active disease Dictated By: Miguel Knowles MD Signed By: <Electronically signed by Miguel Knowles MD in OV> 07/11/25 1210 Ordering Physician: Jessica Ayala MD Date of Service: 07/11/25 Procedure(s): CT head/brain wo con Accession Number(s): [id number] cc: Miguel Knowles MD; Jessica Ayaal MD~ Examination: CT brain head without contrast. 2-D sagittal coronal reconstructions Date and time of exam: July 11, 2025, 1127 hours, comparison 06/12/2025 Onset left-sided body weakness and facial paresthesias beginning 1 hour ago CTDI: vol (mGy): 47 DLP: (mGycm): 973 Technique: Multiple CT axial sections of the brain have been obtained, 5 mm slice thickness. Contrast has not been administered. 2-D sagittal, coronal reconstructions have been obtained Low dose protocols were performed. One or more of the following dose reduction techniques were used; automated exposure control, adjustment of the mA and/or KV according to patient size, use of iterative reconstruction technique. Findings: No significant ventricular enlargement. Intra-axial or extra-axial hemorrhage density is not seen. No mass effect or midline shift Basal cisterns are not remarkable. Fourth ventricle is midline. Cranial vault intact. Impression: Negative for acute hemorrhage, mass effect or midline shift If clinically warranted, brain MRI follow-up would best assess for demyelinating disease, acute ischemic change Dictated By: Miguel Knowles MD Signed By: <Electronically signed by Miguel Knowles MD in OV> 07/11/25 1141 Medications / Prescriptions Medications or Prescriptions considered but not ordered:: None Medication administrations:: Medication Administration History Discontinued Medications Hydrocodone Bitart/Acetaminophen (Hydrocodone/Apap 5/325 Tablet) 1 tab PO X1 ONE Stop: 07/11/25 12:19 Last Admin: 07/11/25 12:49 Dose: 1 tab Documented By: MYA Hydrocodone Bitart/Acetaminophen (Hydrocodone/Apap 5/325 Tablet) 1 tab PO X1 ONE Stop: 07/11/25 13:54 Last Admin: 07/11/25 14:40 Dose: 1 tab Documented By: HAYDEN See above Consultations Consultation(s) initiated? (list below): No Diagnosis Differential diagnosis headache: migraine, tension headache, subarachnoid hemorrhage and headache Most likely diagnosis given after review of the tests above:: Headache Admission Indicated Admission indicated?: not indicated Admission Request Was there a request for admission?: No Disposition Plan Disposition Plan: Discharge Discharge Attestation Discharge Attestation: The patient and all family members were given an opportunity to ask questions and understood the discharge instructions. Discharge instructions specifically effects, indications for sooner follow up or return to the emergency department, and the expected course of current diagnosis. Patient condition: Stable Discharge Plan Plan Patient Disposition: HOME (Self Care) Prescriptions/Referrals Prescriptions/Med Rec: No Action ibuprofen 800 mg tablet 800 mg PO TID PRN (Reason: pain) Qty: 30 0RF hydrocodone-acetaminophen 5-325 mg tablet 1 tab PO BID MDD 10 PRN (Reason: pain) Qty: 10 0RF ibuprofen 800 mg tablet 800 mg PO TID PRN (Reason: pain) Qty: 30 0RF cyclobenzaprine 5 mg tablet 5 mg PO BID PRN (Reason: muscle spasm) Qty: 14 0RF ibuprofen 600 mg tablet 600 mg PO Q8H PRN (Reason: fever or pain) Qty: 30 0RF dextromethorphan-guaifenesin 10-100 mg/5 mL liquid 10 ml PO Q8H PRN (Reason: cough) Qty: 500 0RF ibuprofen 600 mg tablet 600 mg PO TID PRN (Reason: pain) Qty: 30 0RF rizatriptan [Maxalt] 10 mg tablet 10 mg PO Q2H PRN (Reason: migraine headache) Qty: 30 0RF Rx Instructions: do not exceed 3 doses per 24 hrs potassium chloride 10 mEq packet 10 meq PO QDAY Qty: 4 0RF potassium chloride 10 mEq capsule, extended release 10 meq PO QDAY Qty: 5 0RF benzonatate 200 mg capsule 200 mg PO TID PRN (Reason: cough) Qty: 20 0RF ibuprofen 600 mg tablet 600 mg PO TID PRN (Reason: pain) Qty: 30 0RF hydrocodone-acetaminophen 5-325 mg tablet 1 tab PO Q6H MDD max 4 tabs per day PRN (Reason: pain) Qty: 8 0RF Referrals: Orlin Barrett NP [Primary Care Provider] - In 1 week Problem List Clinical Impression: Headache Patient/Caregiver Discharge Instructions Education Materials: Self-Care for Headaches Print Language: Kinyarwanda Stand Alone Forms: Kira Award Info., Patient Portal Info Letter
[2025-07-11 14:46] VITALS: BP 109/70; PULSE 86; RESP 16; TEMP 36.4; O2SAT 100
== END 2025-07-11 14:48 | disposition home or self-care (01) ==
PROVIDERS: Emergency Provider Emergency Medicine; PCP Nurse Practitioner Family
DX: I67.82 Cerebral ischemia (principal)
CPT/HCPCS: 36415; 70450; 71045; 80053; 80307; 80320; 81001; 83690; 83735; 83880; 84484; 85025; 85610; 85730; 93005; 99284; A9270; G0480